=== PATIENT | female | born 1960 | race Caucasian/White ===

== ENCOUNTER 2022-08-23 09:16 | Outpatient (CLI) | payer MEDICARE, MEDICAID, SELFPAY ==
--- NOTE | ~2022-08-23 | PE_ITS ---
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 TECHNIQUE: Blood glucose level was 90 mg/dL. 9.955 mCi of 18-fluorodeoxyglucose (18-FDG) was administ ered i.v. Low dose computed tomography (CT) images were acquired from the base of the brain to the pr oximal thighs for attenuation correction and anatomic localization. Automated exposure control was em ployed. Dose-length product (DLP) was 867 mGy-cm. Positron emission tomography (PET) images were acqu ired in the same distribution. COMPARISON: None FINDINGS: Head/neck: There is increased activity in normal-sized lymph nodes in the neck bilaterally, likely re active. Chest: There are airspace opacities with volume loss in right middle lobe with maximum SUV of 3.2. Th ere is an 8 mm nodule in right lower lobe abutting the pleura without increased activity. No pleural effusion. Cardiomegaly is noted. No pericardial effusion. There are coronary artery calcifications. T here is mild right hilar and subcarinal lymphadenopathy. For example, a 2.2 x 1.6 cm subcarinal node demonstrates maximum SUV of 4.1. Abdomen/pelvis/proximal thighs: The liver, gallbladder, spleen, pancreas, adrenal glands, and right k idney are normal. There are 2 stones in left kidney with the larger measuring 13 mm. There is diverti culosis of the colon without evidence of diverticulitis. There are no dilated loops of bowel. The sunil endix is not visualized. There are no pathologically enlarged lymph nodes. There is no free intraperi toneal fluid. There is no osseous malignancy. IMPRESSION: 1. Airspace opacities with volume loss in right middle lobe with maximum SUV of 3.2, likely atelectas is/scarring versus pneumonia. Neoplasm cannot be excluded. 2. Mild right hilar and subcarinal lymphadenopathy with increased activity, which may be reactive or metastatic disease. 3. 8 mm nodule in right lung lower lobe without increased activity, probably benign. Noncontrast low- dose chest CT is recommended in 6 months. Reviewed, dictated and finalized at location A. IMPRESSION: 1. Airspace opacities with volume loss in right middle lobe with maximum SUV of 3.2, likely atelectasis/scarring versus pneumonia. Neoplasm cannot be excluded . 2. Mild right hilar and subcarinal lymphadenopathy with increased activity, whi ch may be reactive or metastatic disease. 3. 8 mm nodule in right lung lower lobe without increased activity, probably be nign. Noncontrast low-dose chest CT is recommended in 6 months.
[2022-08-23 09:43] LABS: Glucose Point of Care 90 mg/dl (65-105)
== END 2022-08-23 09:17 | disposition home or self-care (01) ==
LOC: ANHIMG 09:19
PROVIDERS: PCP Internal Medicine; Visit Provider Internal Medicine Pulmonary Disease
DX: D49.1 Neoplasm of unspecified behavior of respiratory system (principal); R91.8 Other nonspecific abnormal finding of lung field; R59.0 Localized enlarged lymph nodes
CPT/HCPCS: 78815; A9552

== ENCOUNTER 2024-07-03 15:01 | Outpatient (CLI) | payer MEDICARE, MEDICAID, SELFPAY ==
--- NOTE | ~2024-07-03 | XR_ITS ---
EXAMINATION: XR shoulder RT min 2V DATE: 07/03/2024 15:30 INDICATION: Right shoulder pain. TECHNIQUE: 5 views of right shoulder were obtained. COMPARISON: None. FINDINGS: Alignment is normal. No fracture. There is moderate osteoarthritis of glenohumeral joint an d mild osteoarthritis of acromioclavicular joint. IMPRESSION: 1. Polyarticular osteoarthritis. Reviewed, dictated and finalized at location B. [employer]
--- NOTE | ~2024-07-03 | XR_ITS ---
CHEST RADIOGRAPH, PA AND LATERAL CLINICAL HISTORY: CHEST PAIN/pain in rt shoulder . COMPARISON: None available TECHNIQUE: PA and lateral views of the chest. FINDINGS The left mid lung is partially obscured due to AICD generator. Wires project over the right atrium and right ventricle. The remainder of the cardiomediastinal silhouette is otherwise unremarkable. The lungs are clear IMPRESSION: No focal infiltrate or effusion. Reviewed, dictated and finalized at location A. [facility]
--- OUTSIDE RECORDS SUMMARY | 2024-07-05 02:48 | XMS_ITS | Data Portability ---
Author Organization [place] - [facility] [place], Main Office Address [address] [place] [address] Care Team Providers Care Fabric Inspector Name Role Phone LITZY RICHARDSON Primary Care Provider LITZY RICHARDSON Referring Provider [phone] Assessment Encounter Date Assessment Date Assessment LastModified by Organization Details LastModified Time 09/05/2022 09/05/2022 Assessment: Nicotine smoke: 1 ppd 1979-present = 43 pack years Mild ACO Right hilar/subcarinal lymphadenopathy RLL nodule Plan: The following were reviewed and explained to the patient: Chest CT 05/15/19 8.7 mm RLL pleural-based nodule Chest CT 09/17/20 8 mm RLL pleural based nodule Chest CT 07/18/22 8 mm RLL pleural based nodule + new RML wedge-shaped density PET/CT 08/23/22 right hilar/subcarinal lymphadenopathy, 8 mm RLL nodule, RML atelectasis/scar Lab data 08/02/22 PFT 08/16/22 FEV1 2.08 L (80%), (+) BD response Nicotine cessation counseling provided. [place] for quitting nicotine include getting ready, getting support and encouragement, learning new skills and behaviors and being prepared to handle slips. Tips for dealing with cravings provided. Prevention of subsequent illnesses from nicotine addiction discussed. Comorbidities include but are not limited to hypertension, cerebrovascular disease, coronary heart disease, congestive heart failure, hyperlipidemia, COPD/asthma, peptic ulcer disease, esophagitis/gastri tis, and osteoporosis. Therapy options offered include: Quitting by total abstinence Receiving nicotine replacement therapy Undergoing hypnosis Filling a bupropion or varenicline prescription Enrolling in Quit For Life program Registering at [email or web address] Making a call to 7-500-RNLZ-NOW ( ). A strong, clear, personalized message was given to the patient to quit smoking. The patient was urged to set a quit date. We discussed patient's barriers to quitting and I will be of assistance when patient is ready to quit. I encouraged patient to inform friends and family of plans to quit with a request for support. I encouraged the patient to remove all cigarettes from the environment. We reviewed any previous quit attempts and lessons learned from them. I encouraged total abstinence from smoking and advised the patient that drinking alcohol and/or associating with other smokers are associated with failure or relapse. Patient can enroll in [facility]'s smoking cessation class through Jennie Jain RN at . Enrollment is free and classes are held every monday of the month from 1:30 pm to 2:30 pm at the conference room next to the cafeteria on the ground floor. She tried total abstinence by chewing mints and gums, to no avail. She has nicotine patches step 1, 2 and 3 but has not started using them. Patient is referred to Dr. Mason Lindsay , at [facility] for advanced diagnostic and therapeutic bronchoscopy, scheduled for 09/12/22. Discontinue all NSAIDS (diclofenac, ibuprofen, naproxen) and ASA products until after the bronchoscopy. Advised to continue not to smoke. Continue albuterol HFA as needed. Continue budesonide/formote rol 2 puffs BID, not 1 puff BID and not as needed. Gargle after use. The patient does not know how to accurately administer the inhalers. Today, the patient was shown how to take these medications. The proper technique for delivering these medications was instructed. The patient expressed a clear understanding and demonstrated back how to use these medications. Without the proper technique, the patient will not reap the benefits of these medications as the contents will not reach the lower airways as intended to be. Adherence to therapy is advocated. Nonadherence may lead to treatment failure, further progression of the condition, and other complications. Hospitals admissions are often the result of individuals not taking prescription medications accurately. Alternatively, greater adherence to medication regimens have shown to lower rates of hospitalization and decrease total medical costs in patients with chronic medical conditions. Advocated influenza vaccination annually and pneumonia vaccination NAVARRO. Advocated weight loss through diet and exercise. Patient's ideal body weight according to height and gender is up to Encouraged patient to adjust caloric intake to maintain/achieve ideal body weight, emphasizing on fruits, vegetables, whole grains, and fat-free or low-fat products. These include lean meats, poultry, fish, beans, eggs, and nuts and foods that are low in saturated fats, trans-fats, cholesterol, salt (sodium), and glycemic index. Stressed the importance of regular exercise up to the patient's capacity limits. In this case, we recommend 20 min daily walking, 2 days a week of resistance training. Patient to monitor BP daily and bring records to PCP for further management. Follow-up: 1 month after [facility] consult with Dr. Angélica sullivan Not available 09/05/2022 15:10:19 01/22/2024 01/22/2024 63-year-old femliane linder presents for evaluation of her right knee. She has a history of a right TKA done with another surgeon who is no longer in practice in September of 2021. She had psoriasis and what sounds like a superficial wound infection but did not require additional surgery. Since then, she was doing well until about 6 months ago when she developed pain in the anterior knee. She points it over the patellar tendon. It is worse with walking and activities. She currently rates her pain as 7/10. She has not had any treatments for this yet. Review of systems per patient questionnaire Physical exam: She has a healed incision, clean dry intact without bleeding drainage or other signs of infection. She has an area of numbness over the lateral aspect of the wound. Range of motion 0-130. Tenderness over the patellar tendon. My lead antalgic gait. No extensor lag, good knee extension flexion strength. X-rays reviewed, demonstrating TKA in place, metallic patellar button,no signs of loosening She appears to have some patellar tendinitis after a total knee arthroplasty. we will treat her with a course of anti-inflammatorie s and physical therapy. We gave her orders her PT, as well as meloxicam and she should use some topical Voltaren. We will see her back after the course of treatment if she persists in her symptoms, then we would do lab work to rule out an infection, then refer her to a total joint specialist. We discussed that I do not do revision joint procedures and that she should try to get in touch with her surgeons group to see if there is somebody else she can see from that practice. [email or web address] Not available 01/22/2024 13:25:26 Plan of Treatment Reminders Order Date Submit Date Provider Last Modified By Organization Details Last Modified Time Details Appointments None recorded. Lab None recorded. Referral physical therapist referral - andrew and Munira September [id number] [email or web address] [facility] Physical, Occupational [facility], [address] [place], [address], 00:41:14 Procedures None recorded. Surgeries None recorded. Imaging None recorded. Medication Orders albuterol sulfate HFA 90 mcg/actuat ion aerosol inhaler 2022 023 [id number], [address], [place], [id number], 4 10:59:58 budesonide -formotero l HFA 160 mcg-4.5 mcg/actuat ion aerosol inhaler 2022 023 LISA [facility][id number], [address], [place], [id number], 3 15:08:47 Mobic 15 mg tablet 2023 024 [email or web address] [facility][id number], [address], [place], [id number], 4 00:41:14 Patient TargetsNo targets recorded. Patient InstructionsNo instructions recorded. Reason for Referral Physical Therapist Referral for History of right total knee replacement andrew and Munira September 2021 Referring Physician: Mason Baeza, Orthopedic Surgery, Encounter Date: 01/22/2024 Results Created Date Observation Date Name Description Value Unit Range Abnormal Flag Note LastModifiedBy Organization Detail LastModifiedTime 10/01/19 22 XR, foot, 3 or more view No observ ation record ed. [id number] [facility] [address], [place], [address], 08/10/2022 20:10:53 08/05/19 23 09/17/2020 CT, chest , w/ contr ast No observ ation record ed. [id number] Not Available 08/10/2022 20:10:53 08/05/19 23 05/15/2019 LDCT, chest , for lung cance r scree ton No observ ation record ed. [id number] Not Available 08/10/2022 20:10:53 08/19/19 23 07/18/2022 LDCT, chest , for lung cance r scree ton No observ ation record ed. BARCODE Not Available 2022 13:24:29 08/19/19 23 08/16/2022 PFT, compl ete No observ ation record ed. [facility]CODE Not Available 2022 13:26:34 08/24/19 23 08/23/2022 PET-C T, skull base to mid-t high scan No observ ation record ed. [facility] [address], [place], [address], 08/23/2022 18:28:15 02/18/20 23 02/14/2023 home sleep study No observ ation record ed. BARCODE Not Available 2022 14:00:16 03/01/20 23 02/14/2023 home sleep study No observ ation record ed. [email or web address] [facility] [address], [place], [address], 03/01/2023 16:40:27 01/02/20 24 10/10/2023 XR, knee, 3 view No observ ation record ed. [email or web address] Not Available 12/11 17:06:51 Result Notes None recorded. Problems Name Problem SNOMED Code Status Onset Date Resolution Date Notes Provider Name and Address Organization Details Recorded Time Localized, primary osteoarthr itis of the hand 019924161 Active Not Available [employer] 20:08:09 Low back pain 180124284 Active 2018 [facility] Available [facility] 20:08:09 Bunion 835347985 Active Not Available [facility] 20:08:09 Mild chronic obstructiv e pulmonary disease 546567067 Active 2022 Leonel Tolliver MD [address], [place], [address] , [email or web address] 3 14:57:37 Mediastina l lymphadeno nahomi 09629386 Active 2022 Leonel Tolliver MD [address], [place], [address] , [email or web address] 3 14:59:52 Hilar lymphadeno nahomi 37287452 Active 2022 Leonel Tolliver MD [address], [place], [address] , [email or web address] 3 15:00:02 Tendinitis of right patellar tendon 7899250381901 09 Active 2023 Mason Baeza MD [address], [place], [address] , [employer] 4 13:25:36 Notes:Medical History: Psori asis Depression L>R hearing loss Right tinnitus Rhinitis IgE 48 IU/mL AAT PiMM 157 mg% Nicotine use Mild ACO Obesity with mod OSAHS, AHI = 25, 02/14/23 Dilated cardiomyopathy Hypertension Hyperlipidemia CIELO Hepatitis C Vit D deficiency RLS OA Low back pain Left bunion Procedure History: Colonoscopy 2018 Right total knee replacement 2021 Occupational History: [employer] Problem Notes None recorded. Procedures Surgical History Date Name Laterality Status Provider Name and Address Organization Details Recorded Time 09/15/19 total knee replacement completed Not Available [facility] 08/10/2022 20:07:02 Defibrillator completed GILES Brenner [email or web address] 01/22/2024 11:00:50 Imaging Results Imaging Date Name Status LastModified by Organiz ation Details LastModified Time 09/30/2021 XR, foot, 3 or more view completed [id number] [facility] [address], [place], [address], 08/10/2022 20:10:53 09/17/2020 CT, chest, w/ contrast completed [id number] Information not available 08/10/2022 20:10:53 05/15/2019 LDCT, chest, for lung cancer screening completed [id number] Information not available 08/10/2022 20:10:53 07/18/2022 LDCT, chest, for lung cancer screening completed [facility] Information not available 08/18/2022 13:24:29 08/16/2022 PFT, complete completed [facility] Information not available 08/18/2022 13:26:34 08/23/2022 PET-CT, skull base to mid-thigh scan completed [facility] [address], [place], [address], 08/23/2022 18:28:15 02/14/2023 home sleep study completed [facility] Information not available 02/17/2023 14:00:16 02/14/2023 home sleep study completed [address] [facility] [address], [place], [address], 03/01/2023 16:40:27 10/10/2023 XR, knee, 3 view completed [email or web address] Information not available 01/02/2024 17:06:51 Procedure Notes None recorded. Medical Equipment None Reported. Allergies Allergen ID Allergen Name Allergen Category Reaction Reaction Severity Criticality Documentation Date Start Date Code Code System Note Provider Name and Address Organization Details Recorded Time 18629 clindamyc in Not available Not available Not available Not available 08/10/2022 2582 RxNorm Not Available [employer] 20:10:47 No known drug allergies Medications Name Sig Start Date Stop Date Status Note LastModified by Organization Details LastModified Time cyclobenzapri ne 10 mg tablet active Not Available Not Available Not Available promethazine- DM 6.25 mg-15 mg/5 mL oral syrup 08/02 completed Not Available Not Available Not Available carvedilol 6.25 mg tablet active Not Available Not Available Not Available gabapentin 600 mg tablet 01/21 completed Not Available Not Available Not Available doxycycline hyclate 100 mg capsule active Not Available Not Available N ot Available paroxetine 10 mg tablet 08/02 completed Not Available Not Available Not Available ropinirole 1 mg tablet 03/04 completed Not Available Not Available Not Available Tab-A-Shahnaz tablet 08/02 completed Not Available Not Available Not Available ibuprofen 800 mg tablet 08/02 completed Not Available Not Available Not Available hydrocodone 5 mg-acetaminop hen 325 mg tablet 08/02 completed Not Available Not Available Not Available promethazine 6.25 mg/5 mL oral syrup 08/02 completed Not Available Not Available Not Available meloxicam 15 mg tablet TAKE 1 TABLET BY MOUTH EVERY DAY 2023 active Not Available Not Available Not Avai lable prednisone 20 mg tablet 08/02 completed Not Available Not Available Not Available ropinirole 3 mg tablet active Not Available Not Available No t Available ciprofloxacin 500 mg tablet 08/02 completed Not Available Not Available Not Available peg-electroly te solution 420 gram oral solution 08/02 completed Not Available Not Available Not Available tramadol 50 mg tablet active Not Available Not Available No t Available nortriptyline 25 mg capsule 03/04 completed Not Available Not Available Not Available ropinirole 0.25 mg tablet 08/02 completed Not Available Not Available Not Available baclofen 10 mg tablet 08/02 completed Not Available Not Available Not Available amlodipine 10 mg tablet 08/02 completed Not Available Not Available Not Available ropinirole 2 mg tablet 08/02 completed Not Available Not Available Not Available cephalexin 500 mg capsule 01/21 completed Not Available Not Available Not Available ranitidine 150 mg tablet 03/04 completed Not Available Not Available Not Available promethazine 25 mg tablet 03/04 completed Not Available Not Available Not Available gabapentin 300 mg capsule 08/02 completed Not Available Not Available Not Available omeprazole 20 mg capsule,delay ed release active Not Available Not Available N ot Available diclofenac sodium 75 mg tablet,delaye d release 08/02 completed Not Available Not Available Not Available furosemide 20 mg tablet 08/02 completed Not Available Not Available Not Available fluocinonide 0.05 % topical solution 03/04 completed Not Available Not Available Not Available albuterol sulfate HFA 90 mcg/actuation aerosol inhaler INHALE 1 PUFF BY MOUTH EVERY 4 HOURS NEEDED 01/21 completed Not Available Not Available Not Available Vitamin D2 1,250 mcg (50,000 unit) capsule 08/02 completed Not Available Not Available Not Available betamethasone dipropionate 0.05 % topical ointment 03/04 completed Not Available Not Available Not Available naproxen 500 mg tablet 08/02 completed Not Available Not Available Not Available amoxicillin 875 mg-potassium clavulanate 125 mg tablet 02/16 completed Not Available Not Available Not Available Symbicort 160 mcg-4.5 mcg/actuation HFA aerosol inhaler INHALE 2 PUFFS BY MOUTH TWICE DAILY active Not Available Not Available No t Available Calcium 600 + D(3) 600 mg-10 mcg (400 unit) tablet 08/02 completed Not Available Not Available Not Available Entresto 24 mg-26 mg tablet active Not Available Not Available Not Available Zepatier 50 mg-100 mg tablet 02/21 completed Not Available Not Available Not Available Vitals Date Recorded Body mass index (BMI) Heart rate Body height Oxygen saturation Oxygen saturation in Arterial blood by Pulse oximetry Heart rate Respiratory rate Body temperature Body weight Systolic blood pressure Diastolic blood pressure Provider Name and Address Organization Details Last Updated DateTime 3 31.2 kg/m2 84 /min 171.45 cm 95 % 95 % 84 /min 15 /min 98.5 [degF] 36254.6 6 g 140 mm[Hg] 70 mm[Hg] Not Available [facility] 3 20:07:23 Date Recorded Body height Body mass index (BMI) Body weight Body temperature Heart rate Oxygen saturation Oxygen saturation in Arterial blood by Pulse oximetry Systolic blood pressure Diastolic blood pressure Provider Name and Address Organization Details Last Updated DateTime 3 171.45 cm 31.3 kg/m2 30729.2 5 g 98.3 [degF] 82 /min 96 % 96 % 130 mm[Hg] 82 mm[Hg] ROSELIA Tracey - [facility] [employer] 14:37:02 Date Recorded Heart rate Respiratory rate Provider N farzana and Address Organization Details Last Updated DateTime 09/05/2022 82 /min 15 /min Leonel Tolliver MD [address], [facility] [address], [place], [address], [facility] [employer] [facility] 09/05/2022 14:48:25 Date Recorded Body height Body mass index (BMI) Body weight Provider Name and Address Organization Details Last Updated DateTime 01/22/2024 170.18 cm 30.7 kg/m2 66499.1 g Kimmy Nikolai [facility] [employer] [facility] 01/22/2024 10:59:03 Social History Question Answer Notes LastModified by Organizat ion Details LastModified Time Tobacco Smoking Status Current Every Day Smoker Not Available [facility] 08/10/2022 20:06:48 What Is Your Level Of Alcohol Consumption? Moderate [id number] Information not available 08/10/2022 What Is Your Level Of Caffeine Consumption? Occasional MIGRATION.48999 [id number] Information not available 08/10/2022 In The 14 Days Before Symptom Onset, Have You Had Close Contact With A Laboratory-confi rmed COVID-19 While That Case Was Ill? No MIGRATION.67211 [id number] Information not available 08/10/2022 In The 14 Days Before Symptom Onset, Have You Had Close Contact With A Person Who Is Under Investigation For COVID-19 While That Person Was Ill? No MIGRATION.76856 [id number] Information not available 08/10/2022 What Type Of Diet Are You Following? REGULAR MIGRATION.63239 44188 Information not available 08/10/2022 Which Illicit Or Recreational Drugs Have You Used? Marijuana MIGRATION.15431 69551 Information not available 08/10/2022 Do You Have An Electrostatic Air Filter? No MIGRATION.00453 19044 Information not available 08/10/2022 Do You Have A Humidifier? No MIGRATION.60247 20321 Information not available 08/10/2022 Where Do You Live? [place] MIGRATION.88013 79288 Information not available 08/10/2022 Do You Have Moisture Problems In Your Home? No MIGRATION.37403 40817 Information not available 08/10/2022 What Was The Date Of Your Most Recent Tobacco Screening? 01/22/2024 [email or web address] Information not available 01/22/2024 Do You Have Any Pets? Yes MIGRATION.21872 03949 Information not available 08/10/2022 Do You Use Your Seat Belt Or Car Seat Routinely? Yes [email or web address] Information not available 09/05/2022 Do You Have Smoke And Carbon Monoxide Detectors In Your Home? Yes MIGRATION.68629 18056 Information not available 08/10/2022 Are You Passively Exposed To Smoke? No MIGRATION.85450 24063 Information not available 08/10/2022 How Much Tobacco Do You Smoke? 1 PPD MIGRATION.67384 06557 Information not available 08/10/2022 Do You Use Any Illicit Or Recreational Drugs? Yes MIGRATION.38010 52726 Information not available 08/10/2022 Do You Use Sunscreen Routinely? No MIGRATION.63481 11375 Information not available 08/10/2022 Have You Recently Traveled Abroad? No MIGRATION.63461 20970 Information not available 08/10/2022 Do You Have Any Dietary Restrictions? No MIGRATION.29172 30611 Information not available 08/10/2022 Sex: Unknown Functional Status Question Answer Note LastModified by [email or web address] ion Details LastModified Time What is your exercise level? Occasional [id number] Information not available 08/10/2022 Mental Status None recorded. Family History Relationship Description Onset Age of this Age Resolved Age Notes LastModified by Organization Details LastModified Time Brother Asthma [email or web address] Not available 14:56:07 Brother Congestive heart failure [email or web address] Not available 2022 17:23:09 Father Cerebrovascu lar accident [email or web address] Not available 12/2022 17:23:17 Mother Malignant tumor of stomach [email or web address] Not available 2022 17:23:29 Medical History Condition Response HEART ARRHYTHMIA Y HEPATITIS / LIVER DISEASE Y Gynecological HistoryNo gynecological history recorded. Obstetrics History GPAL:G 0 P 0 0 0 0 Past Encounters Encounter ID Performer Location Encounter Start Date Encounter Closed Date Diagnosis/Indication Diagnosis SNOMED-CT Code Diagnosis ICD10 Code Diagnosis Note [id number] _ATHENA_M IGRATION_ DEFAULT_1 _1 , 09/24/2021 00:00:00 09/30/2021 10:08:17 [id number] [facility] [address] [place] [address] 08/02/2022 00:00:00 08/02/2022 16:18:50 [id number] Leonel Tolliver MD [facility] [place] [address] [facility] [address] [place] [address] 09/05/2022 14:21:20 09/06/2022 08:49:31 Mild chronic obstructive pulmonary disease 906521120 J44.9 Hilar lymphadenopathy 87 093121 R59.0 [id number] Mason Baeza MD [facility] [place] [address] [place] [address] 01/22/2024 10:31:13 01/22/2024 11:41:00 History of right total knee replacement 4578673187 780804 Z96.651 Tendinitis of right patellar tendon 0291660337 44967 M76.51 Health Concerns Section Related Observation LastModified by Organization Detai ls LastModified Time None Recorded Concern Status LastModified by Organization Details LastModified Time None Recorded Advance Directives Directive None Recorded Payers Encounter Date Sequence Insurance Name Policy Number Policy Booker Covered Member ID Booker Member ID Guarantor Name 09/05/2022 1 [facility] [place] - ACCESS SNP DUAL ELIGIBLE (MEDICARE - MEDICAID REPLACEMENT HMO) Mayra Zavala [id number] Mayra Zavala 01/22/2024 2 [place] WHEN MEDICARE OR MEDICARE REPLACEMENT PRIMARY) Mayra Zavala [id number] Mayra Zavala 01/22/2024 1 [facility] (MEDICARE REPLACEMENT/AD VANTAGE - PPO) [id number] Mayra Zavala [id number] Mayra Zavala Notes Date Note Type Note Provider Name and Address Organization Details Recorded Time 09/05/2022 text/html Primary care/Ref erring provider: Prieto Kumar is here to go over her lab data, PFT and PET/CT scan as part of her shortness of breath evaluation/management. Initial development of shortness of breath: 2018Duration of shortness of breath: 5 yearsCondition of shortness of breath: stableTiming of shortness of breath: late nightFrequency: up to 2 times a dayLimits activities: yesAggravating factors: walking, line dancingAlleviating factors: rest x 1 minuteModified Medical Research [place] (mMRC) Dyspnea Scale - Grade 1Grade 0 ? I only get breathless with strenuous exercise? .Grade 1 ? I get short of breath when hurrying on the level or walking up a slight hill? .Grade 2 ? I walk slower than people of the same age on the level because of breathlessness or have to stop for breath when walking at my own pace on the level? .Grade 3 ? I stop for breath after walking about 100 yards or after a few minutes on the level? .Grade 4 ? I am too breathless to leave the house? or ? I am breathless when dressing? .Treatment history:Albuterol HFA as needed since 2018, she uses this once a monthBudesonide/Formot juanjo 2 puffs BID but using only once a month since 2018Other symptoms:Drooling: noDysarthria: noNeck pain: noOdynophagia: noDysphagia: noWeak mastication: noFacial weakness: noNasal speech: noProtruding tongue: noProductive cough: noWheezing: yesChest tightness: yesOrthopnea: 2-pillowFrequent throat clearing or swallowing: noPalpitations: noHeartburn: noEdema: yesEnvironmental exposures:Nicotine smoke: 1 ppd 1980-present = 43 pack yearsPaint: noDye: noDust mites: yesMold: noDamp basement: noWood burning stove: noAnimal dander: dogCockroaches: noPollen: yesArsenic: noAsbestos: noBeryllium: noCadmium: noChromium: noCoal smoke: noDiesel fumes: noNickel: noSilica: noSoot: noEPWORTH SLEEPINESS SCALE (ESS)CHANCE OF DOZING SCORE0 = would never doze1 = slight chance of dozing2 = moderate chance of dozing3 = high chance of dozingSITUATION AND CHANCE OF DOZINGSitting and reading - 1Watching television - 0Sitting inactive in a public place (e.g. a theater or meeting) - 1As a passenger in a car for an hour without a break - 1Lying down to rest in the afternoon when circumstances permit - 0Sitting and talking to someone - 0Sitting quietly after lunch without alcohol - 0In a car, while stopped for a few minutes in the traffic - 0TOTAL SCORE 3Subjectively, patient has a slight chance of dozing. Leonel Tolliver MD [address] [place] [id number], [facility] [address], [place], [address], [place] [facility] 09/05/2022 15:10:50 OBGyn Episode No OBEpisode recorded.
== END 2024-07-03 15:02 | disposition home or self-care (01) ==
PROVIDERS: PCP Emergency Medicine; Visit Provider Emergency Medicine
DX: R07.1 Chest pain on breathing (principal); M25.511 Pain in right shoulder
CPT/HCPCS: 71046; 73030

== ENCOUNTER 2024-08-27 14:16 | Outpatient (CLI) | payer MEDICARE, MEDICAID, SELFPAY ==
--- NOTE | ~2024-08-27 | XR_ITS ---
XR shoulder RT min 2V Ordering provider: Lakisha Enamorado, History: . Pain in rt arm, LIMITED ROM, PAIN 4 MONTHS, NKI . Comparison: None. FINDINGS: BONES: No acute fracture or dislocation. JOINT SPACES: The acromioclavicular joint shows osteoarthritic changes. The glenohumeral joint with o steophytes with osteoarthritic changes. SOFT TISSUES: Normal. IMPRESSION: No acute osseous abnormality right shoulder. Osteoarthritic changes of the glenohumeral joint and acromioclavicular joint. Reviewed, dictated and finalized at location A.
--- NOTE | ~2024-08-27 | XR_ITS ---
XR humerus RT Ordering provider: Lakisha Enamorado, History: . Pain in rt arm . Comparison: None. FINDINGS: BONES: No acute fracture or dislocation. Degenerative changes in the area of the greater tuberosity. JOINT SPACES: Osteoarthritic changes in the acromioclavicular joint. Glenohumeral joint. SOFT TISSUES: Normal. IMPRESSION: No acute osseous abnormality right humerus. Reviewed, dictated and finalized at location A.
--- OUTSIDE RECORDS SUMMARY | 2024-08-27 16:07 | XMS_ITS | Data Portability ---
Author Organization [facility] Address [address] [place] [address] Care Team Providers Care Nib Inspector Name Role Phone MOOK SARAH Lead Solutions Architect LAKISHA ENAMORADO Primary Care Provider Unavailabl e Assessment No assessment recorded. Plan of Treatment Reminders Order Date Submit Date Provider Last Modified By Organization Details Last Modified Time Details Appointments ANY 15 2024 01:30P M Jarrell Odom MD Not available Not available Not available ANY 30 2024 02:30P M Lakisha Enamorado MD Not available Not available Not available Lab CMP, serum or plasma 2024 025 [facility], [address] [place] [address], [facility] [address], [place], [address], 08/12/2024 17:41:25 lipid panel, serum 2024 025 [facility], [address] [place] [address], [address], [place], [address], 08/12/2024 17:41:25 CBC 2024 025 [facility], [address] [place] [address], [address], [place], [address], 08/12/2024 17:41:26 albumin/ creatini ne, mass ratio, urine 2024 025 [facility], [address] [place] [address], [address], [place], [address], 08/12/2024 17:41:25 rf (rheumat oid factor), serum 2023 024 [facility], [facility] [address], [address], [place], [address], 05/01/2024 16:37:21 ROSA ISELA (antinuc lear antibodi es) screen, ifa, serum 2023 024 [facility], [address] [place] [address] Ozzy, [address], [place], [address], 05/01/2024 16:37:21 ESR (erythro cyte sediment ation rate), blood 2023 024 LISA KUNAL, [address] [place], [place] [address]reggie Preciado, [address], [place], [address], 05/01/2024 16:37:20 lipid panel, serum 2023 024 [facility], [address] [place], [place] [address]reggie Preciado, [address], [place], [address], 05/01/2024 16:37:22 CMP, serum or plasma 2023 024 [facility], [address] [place], [place] [address]reggie Preciado, [address], [place], [address], 05/01/2024 16:37:21 albumin/ creatini ne, mass ratio, urine 2023 024 [facility], [address] [place], [place] [address]reggie Preciaod, [address], [place], [address], 05/01/2024 16:37:22 cytology report, thin prep, smear or scraping , cervical or vaginal 2023 024 [facility], [address] [place], [place] [address]reggie Preciado, [address], [place], [address], 03/07/2024 20:08:36 RPR (rapid plasma reagin), serum 2023 024 [facility], [address], [address], [place], [address], 03/05/2024 03:08:36 herpes simplex, culture, unspecif ied specimen 2023 024 [facility], [address] [place] [address], [address], [place], [address], 03/08/2024 20:09:12 BMP, serum or plasma 2023 024 [facility], [address] [place] [address], [address], [place], [address], 03/05/2024 06:17:55 Referral physical therapis t referral 2023 024 [facility], [address], [place], [address], 04/03/2024 09:29:04 orthoped ic surgeon referral 2023 024 [facility], [address], [place], [address], 02/09/2024 15:57:51 neurolog ist referral - paresthe raisa right upper and lower extremit y, EMG carpal tunnel which does not explain all of her symptoms , also has restless legs 2023 024 LISA Soares MD, [address], [place], [address], 07/03/2024 15:43:52 Procedures None recorded . Surgeries None recorded . Imaging XR, humerus - Rule out fracture , tender below humeral head 2024 025 [facility], [address], [place], [address], 08/27/2024 15:44:34 XR, shoulder - increasi ng pain 2024 025 [facility], [address], [place], [address], 08/27/2024 15:44:24 XR, chest 2023 024 [facility] ([facility]), [address], [place], [address], 07/09/2024 10:18:04 XR, shoulder - RIGHT SHOULDER 2023 024 [facility] ([facility]), [address], [place], [address], 07/09/2024 10:19:08 MAMMO, screenin g, digital, bilatera l [address] [facility]), [address] [place], [address], 02/08/2024 16:32:53 Medication Orders tramadol 50 mg tablet 2024 025 [id number], [address], [place], [id number], 08/12/2024 17:41:33 omeprazo le 20 mg capsule, delayed release 2023 024 [id number], [address], [place], [id number], 05/02/2024 09:33:22 Ventolin HFA 90 mcg/actu ation aerosol inhaler 2023 024 [facility][id number], [address], [place], [id number], 05/02/2024 09:33:21 Symbicor t 160 mcg-4.5 mcg/actu ation HFA aerosol inhaler 2023 [facility] #[id number], [address], [place], [id number], 05/02/2024 09:33:20 ropiniro le 3 mg tablet 2023 [facility] #[id number], [address], [place], [id number], 05/02/2024 09:33:18 gabapent in 600 mg tablet 2023 [facility] [employer] [facility][id number], [address], [place], [id number], 05/02/2024 09:33:22 Patient TargetsNo targets recorded. Patient Instructions Encounter Date Encounter Id Patient Instructions Last Modified By Organization Details Last Modified Time 01/01/2024 [id number] A healthy lifestyle: care instructions rick Not available 01/01/2024 16:47:19 03/04/2024 [id number] Attending Physician Attestation I personally saw and examined the patient with the resident. I have reviewed the documentation and agree with the history, physical findings, work-up, and medical decision making as recorded. Sarah Delvalle MD mmetias Not available 03/04/2024 11:04:47 Reason for Referral Orthopedic Surgeon Referral for Yessi test positive Referring Physician: Lakisha Enamorado, Family Medicine, Encounter Date: 01/01/2024 Neurologist Referral for Par esthesia paresthesia right upper and lower extremity, EMG carpal tunnel which does not explain all of her symptoms, also has restless legs Referring Physician: Lakisha Enamorado, Family Medicine, Encounter Date: 01/01/2024 Physical Therapist Referral for Iliotibial band friction syndrome of right knee Referring Physician: Jarrell Odom, Orthopedic Surgery, Encounter Date: 04/01/2024 Results Created Date Observation Date Name Description Value Unit Range Abnormal Flag Note LastModifiedBy Organization Detail LastModifiedTime 03/04/2003/05/2024 RPR, RFX QN RPR/C ONFIR M TP RPR NON REACTI VE nonrea ctive Not Available [facility] ([facility]) [address] [facility], [address], 03/05/2024 03:08:35 03/04/2003/05/2024 BASIC METAB OLIC PANEL (8) glucose 100 mg/dL 70-99 above high normal Not Available [facility] ([facility]) [address] [facility], [address], 03/05/2024 06:17:55 03/04/2003/05/2024 BASIC METAB OLIC PANEL (8) BUN 22 mg/dL 8-27 Not Available [facility] ([facility]) [address] [place], [address], 03/05/2024 06:17:55 03/04/2003/05/2024 BASIC METAB OLIC PANEL (8) creatinine 0.80 mg/dL 0.57-1 .00 Not Available [facility] ([facility]) [address] [facility], [address], 03/05/2024 06:17:55 03/04/2003/05/2024 BASIC METAB OLIC PANEL (8) eGFR 84 mL/mi n/1.7 3 >59 Not Available [facility] ([facility]) [address] [facility], [address], 03/05/2024 06:17:55 03/04/2003/05/2024 BASIC METAB OLIC PANEL (8) BUN/creatini ne ratio 28 12-28 Not Available [facility] ([facility]) [address] [place], [address], 03/05/2024 06:17:55 03/04/2003/05/2024 BASIC METAB OLIC PANEL (8) sodium 138 mmol/ L 134-14 4 Not Available [facility] ([facility]) [address] [place], [address], 03/05/2024 06:17:55 03/04/20 24 03/05/2024 BASIC METAB OLIC PANEL (8) potassium 5.5 mmol/ L 3.5-5. 2 above high normal Not Available [facility] ([facility]) [address] [place], [address], 03/05/2024 06:17:55 03/04/2003/05/2024 BASIC METAB OLIC PANEL (8) chloride 102 mmol/ L 96-106 Not Available [facility] ([facility]) [address] [place], [address], 03/05/2024 06:17:55 03/04/2003/05/2024 BASIC METAB OLIC PANEL (8) carbon dioxide, total 24 mmol/ L 20-29 Not Available [facility] ([facility]) [address] [place], [address], 03/05/2024 06:17:55 03/04/2003/05/2024 BASIC METAB OLIC PANEL (8) calcium 9.5 mg/dL 8.7-10 .3 Not Available [facility] ([facility]) [address] [place], [address], 03/05/2024 06:17:55 03/04/20 24 03/06/2024 IGP, APTIM A HPV, RFX 16/18 ,45 HPV aptima NEGATI VE negati ve This nucle ic acid ampli ficat ion test detec ts fourt een high- risk HPV types (16,1 8,31, 33,35 ,39,4 5,51, 52,56 ,58,5 9,66, 68) witho ut diffe renti ation . Not Available [facility] ([facility]) [address], [place], [address], 03/07/2024 20:08:36 03/04/20 24 03/07/2024 IGP, APTIM A HPV, RFX 16/18 ,45 diagnosis: VONDA MORELAND REBA FOR INTRA EPITH ELIAL LESIO N OR PING MAYA . PREDO IDA CE OF COCCO BACIL LI CONSI STENT WITH SHIFT IN VAGIN AL AZALIA IS PRESE NT. Not Available [facility] ([facility]) [address], [place], [address], 03/07/2024 20:08:36 03/04/20 24 03/07/2024 IGP, APTIM A HPV, RFX 16/18 ,45 specimen adequacy: VONDA Westbrook Satis facto raymond for evalu ation . No endoc ervic al compo nent is ident ified . Not Available [facility] ([facility]) [address], [place], [address], 03/07/2024 20:08:36 03/04/20 24 03/07/2024 IGP, APTIM A HPV, RFX 16/18 ,45 clinician provided ICD10: VONDA Westbrook N76.6 Z01.4 19 Not Available [facility] ([facility]) [address] [place], [address], 03/07/2024 20:08:36 03/04/20 24 03/07/2024 IGP, APTIM A HPV, RFX 16/18 ,45 performed by: VONDA Means and-Ladonna Fraser (ASCP ) Not Available [facility] ([facility]) [address] [place], [address], 03/07/2024 20:08:36 03/04/20 24 03/07/2024 IGP, APTIM A HPV, RFX 16/18 ,45 . . Not Available [facility] ([facility]) [address] [facility] [place], [address], 03/07/2024 20:08:36 03/04/20 24 03/07/2024 IGP, APTIM A HPV, RFX 16/18 ,45 note: COMMEN T The Pap smear is a scree ton test desig matt to aid in the detec tion of polo ligna nt and malig nant condi tions of the uteri ne cervi x. It is not a diagn ostic proce dure and shoul d not be used as the sole means of detec ting cervi paolo cance r. Both false -posi tive and false -nega tive repor ts do occur . Not Available [facility] ([facility]) [address] [place], [address], 03/07/2024 20:08:36 03/04/20 24 03/07/2024 IGP, APTIM A HPV, RFX 16/18 ,45 test methodology: COMMEN T This liqui d based ThinP rep(R ) pap test was scree matt with the use of an image guide crystal ball. Not Available [facility] ([facility]) [address] [place], [address], 03/07/2024 20:08:36 03/04/20 24 03/07/2024 IGP, APTIM A HPV, RFX 16/18 ,45 HPV genotype reflex COMMEN T Crite fransico not met, HPV Genot ype not perfo rmed. Not Available [facility] ([facility]) [address] [place], [address], 03/07/2024 20:08:36 03/04/20 24 03/08/2024 HSV CULTU RE AND TYPIN G hsv culture/type COMMEN T Negat reba No Herpe s simpl ex virus isola adolfo. Not Available [facility] ([facility]) [address] [place], [address], 03/08/2024 20:09:12 02/08/20 24 02/08/2024 MAMMO , scree ton, digit al, bilat eral No observ ation record ed. [facility] [address] [place], [address], 02/09/2024 16:14:09 04/01/20 24 04/01/2024 XR, knee, 3 view No observ ation record ed. [facility] [address] [facility], [place], [address], 04/01/2024 14:52:05 07/08/19 25 07/03/2024 XR, chest No observ ation record ed. [facility] ([facility]) [address] [place] [address] [place] [address], [address], 08/12/2024 14:16:16 07/08/19 25 07/03/2024 XR, shoul ariana No observ ation record ed. [facility] ([facility]) [facility], [place], [address], 08/12/2024 14:16:16 Result Notes None recorded. Problems Name Problem SNOMED Code Status Onset Date Resolution Date Notes Provider Name and Address Organization Details Recorded Time Restless legs 33971512 Active 2017 Not Available [facility] 4 05:55:45 Tinea capitis 8019287 Active 2017 Not Available [facility] 4 05:55:45 Vitamin D deficiency 63960275 Active 2017 Not Available [facility] 4 05:55:45 Screening for malignant neoplasm of breast Active 2017 Not Available [facility] 4 05:55:45 Family history of ischemic heart disease 092662751 Active 2018 Not Available [facility] 4 05:55:45 Pre-surgery evaluation Active 2018 Not Available [facility] 4 05:55:45 Cramp in lower limb 521529792 Active 2018 Not Available [facility] 4 05:55:45 Depressive disorder 29842009 Active 2018 Not Available [facility] 4 05:55:45 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 Whitt Not Available [facility] 4 05:55:45 Normal grief reaction 038678440 Active 2019 Not Available [facility] 4 05:55:45 Solitary nodule of lung 951390342 Active 2020 Not Available [facility] 4 05:55:45 Constipatio n 35954306 Active 2020 Not Available [facility] 4 05:55:45 Dysuria 20586617 Active 2021 Not Available [facility] 4 05:55:45 Menopausal syndrome 446106606 Active 2021 Not Available [facility] 4 05:55:45 Knee pain Active Not Available [facility] 4 05:55:45 Hip pain 38050090 Active Not Available [facility] 4 05:55:45 Neuropathy 627153679 Active Not Available [facility] 4 05:55:45 Tobacco user 718447067 Active Not Available [facility] 4 05:55:45 Psoriasis 1486318 Active Not Available [facility] 4 05:55:45 Spasm 83899874 Active Not Available [facility] 4 05:55:45 Insomnia 769442259 Active Not Available [facility] 4 05:55:45 Low back pain 759739749 Active Not Available [facility] 4 05:55:45 Stress 50424792 Active Not Available [facility] 4 05:55:45 Bilateral hearing loss 77489185 Active 2016 Not Available [facility] 4 05:55:45 Gastroesoph ageal reflux disease 118756740 Active 2016 Not Available [facility] 4 05:55:45 Chronic cough 18517135 Active 2016 Not Available [facility] 4 05:55:45 Liver enzymes level above reference range 849090854 Active 2016 Not Available [facility] 4 05:55:45 Hepatitis C antibody detected 354222196 Active 2016 Not Available [facility] 4 05:55:45 Notes:Some problems listed i n Documents: #[id number], #[id number] could not be added to this patient's chart. Please review these documents and add these problems to the patient's chart manually as needed. Problem Notes None recorded. Procedures Surgical History Date Name Laterality Status Provider Name and Address Organization Details Recorded Time 03/04/20 24 Date of Last Pap Smear completed Sima Keen MA [facility] 03/04/2024 10:16:33 02/08/20 24 Date of Last Mammogram completed Sima Keen MA [facility] 03/01/2024 11:00:40 09/15/19 22 total replacement of right knee joint completed Billie Sawyer MA [facility] 12/30/2021 14:25:18 Defibrillator completed Keyona Guerrero MA [facility] 05/01/2024 16:02:21 biopsy of lung completed Keyona Guerrero MA [facility] 05/01/2024 16:02:33 Imaging Results Imaging Date Name Status LastModified by Organiz ation Details LastModified Time 02/08/2024 MAMMO, screening, digital, bilateral completed [facility] [address] [place], [address], 02/09/2024 16:14:09 04/01/2024 XR, knee, 3 view completed [facility] [address] [place], [address], 04/01/2024 14:52:05 07/03/2024 XR, chest completed [facility] ([facility]) [address] [place] [address], [address], 08/12/2024 14:16:16 07/03/2024 XR, shoulder completed [facility]) [address] [place] [address], [address], 08/12/2024 14:16:16 Procedure Notes None recorded. Medical Equipment None Reported. Allergies No known drug allergies Medications Name Sig Start Date Stop Date Status Note LastModified by Organization Details LastModified Time multivita min tablet Take 1 tablet every day by oral route. 07/04 completed Not Available Not Available Not Available Santyl 250 unit/gram topical ointment 04/04 completed Not Available Not Available Not Available cyclobenz aprine 10 mg tablet TAKE 1 TABLET BY MOUTH AT BEDTIME NEEDED 03/08 completed Not Available Not Available Not Available Miralax 17 gram/dose oral powder Take 17 g twice a day by oral route as needed for 1 day. 04/04 completed Not Available Not Available Not Available promethaz ine-DM 6.25 mg-15 mg/5 mL oral syrup TAKE 5 ML (CC) BY MOUTH THREE TIMES DAILY 04/04 completed Not Available Not Available Not Available azelastin e 0.05 % eye drops 04/04 completed Not Available Not Available Not Available venlafaxi ne ER 37.5 mg capsule,e xtended release 24 hr Take 1 capsule every day by oral route in the evening for 7 days. 04/18 completed Not Available Not Available Not Available carvedilo l 6.25 mg tablet active Not Available Not Available Not Available venlafaxi ne ER 75 mg capsule,e xtended release 24 hr Take 1 capsule every day by oral route in the evening for 7 days. 04/18 completed Not Available Not Available Not Available gabapenti n 600 mg tablet one tab po qid prn active Not Available Not Available No t Available doxycycli ne hyclate 100 mg capsule 10/01 completed Not Available Not Available Not Available paroxetin e 10 mg tablet TAKE 1 TABLET BY MOUTH EVERY DAY AT BEDTIME 04/04 completed Not Available Not Available Not Available ropinirol e 1 mg tablet Take 1 tablet every day by oral route at bedtime for 30 days. 03/06 completed Not Available Not Available Not Available trazodone 50 mg tablet Take 1 tablet as needed by oral route at bedtime for 30 days. 07/19 completed Not Available Not Available Not Available Tab-A-Vit e tablet 10/17 completed Not Available Not Available Not Available azithromy svetlana 250 mg tablet 05/01 completed Not Available Not Available Not Available ibuprofen 800 mg tablet TAKE ONE TABLET BY MOUTH THREE TIMES DAILY WITH FOOD 08/26 completed Not Available Not Available Not Available tizanidin e 4 mg tablet TAKE 1 TABLET BY MOUTH THREE TIMES DAILY NEEDED 04/04 completed Not Available Not Available Not Available hydrocodo ne 5 mg-acetam inophen 325 mg tablet 04/04 completed Not Available Not Available Not Available promethaz ine 6.25 mg/5 mL oral syrup Take 10 mL every day by oral route as needed for 90 days. 01/02 completed Not Available Not Available Not Available meloxicam 15 mg tablet active Not Available Not Available Not Available phenazopy ridine 200 mg tablet Take 1 tablet 3 times a day by oral route for 2 days. 04/04 completed Not Available Not Available Not Available prednison e 20 mg tablet take 2 tablets bid for days 1 &2, 1 tablet BID for days 3-7, 1/2 tablet bid days 8&9, then 1/2 tablet on day 10 05/01 completed Not Available Not Available Not Available ropinirol e 3 mg tablet TAKE 1 TABLET BY MOUTH AT BEDTIME 2024 active Not Available Not Available Not Avai lable venlafaxi ne ER 150 mg capsule,e xtended release 24 hr Take 1 capsule every day by oral route in the evening for 30 days. 05/17 completed weird dreams Not Available Not Available Not Available diphenoxy late-atro pine 2.5 mg-0.025 mg tablet 05/15 completed Not Available Not Available Not Available metronida zole 500 mg tablet Take 1 tablet twice a day by oral route for 7 days. 04/04 completed Not Available Not Available Not Available acetamino phen 300 mg-codein e 30 mg tablet Take 1 tablet twice a day by oral route for 30 days. 04/04 completed Not Available Not Available Not Available ciproflox acin 500 mg tablet Take 1 tablet every 12 hours by oral route for 10 days. 04/04 completed Not Available Not Available Not Available sulfameth oxazole 800 mg-trimet hoprim 160 mg tablet 04/04 completed Not Available Not Available Not Available peg-elect rolyte solution 420 gram oral solution 09/28 completed Not Available Not Available Not Available tramadol 50 mg tablet one to two tabs po tid prn pain 2024 active Not Available Not Available Not Avai lable Depo-Medr ol 80 mg/mL suspensio n for injection 03/06 completed Not Available Not Available Not Available nortripty line 25 mg capsule Take 4 capsules as needed by oral route at bedtime for 30 days. 03/06 completed Not Available Not Available Not Available meloxicam 7.5 mg tablet 12/31 completed Not Available Not Available Not Available ofloxacin 0.3 % ear drops 09/28 completed Not Available Not Available Not Available citalopra m 20 mg tablet Take 1 tablet every day by oral route in the evening for 30 days. 05/15 completed Not Available Not Available Not Available Fleet Enema 19 gram-7 gram/118 mL Insert 118 mL twice a day by rectal route as needed for 1 day. 04/04 completed Not Available Not Available Not Available magnesium oxide 400 mg (241.3 mg magnesium ) tablet Take 1 tablet twice a day by oral route with meals for 7 days. 05/15 completed Not Available Not Available Not Available ropinirol e 0.25 mg tablet TAKE 3 TABLETS BY MOUTH EVERY NIGHT AT BEDTIME. CONTINUE 2MG TABLETS WELL 07/04 completed Not Available Not Available Not Available baclofen 10 mg tablet Take 1 tablet 3 times a day by oral route as needed for 30 days. 03/06 completed ineffect reba Not Available Not Available Not Available amlodipin e 10 mg tablet 04/04 completed Not Available Not Available Not Available ropinirol e 2 mg tablet TAKE 1 TABLET BY MOUTH EVERY NIGHT 07/04 completed Not Available Not Available Not Available cephalexi n 500 mg capsule 12/31 completed Not Available Not Available Not Available paroxetin e 20 mg tablet Take 1 tablet every day by oral route in the evening for 30 days. 04/04 completed Not Available Not Available Not Available nortripty line 10 mg capsule TAKE FOUR CAPSULES BY MOUTH AT BEDTIME NEEDED 05/15 completed Not Available Not Available Not Available triamcino lone acetonide 0.1 % topical ointment APPLY A THIN LAYER TO THE AFFECTED AREA(S) BY TOPICAL ROUTE 2 TIMES PER DAY no more than two weeks in a row 05/01 completed Not Available Not Available Not Available ranitidin e 150 mg tablet TAKE ONE TABLET BY MOUTH TWICE DAILY BEFORE MEALS 09/28 completed Not Available Not Available Not Available promethaz ine 25 mg tablet 09/28 completed Not Available Not Available Not Available nicotine 21 mg/24 hr daily transderm al patch Apply 1 patch every day by transder mal route for 30 days. 07/04 completed Not Available Not Available Not Available docusate sodium 100 mg capsule Take 1 capsule twice a day by oral route for 30 days. 04/04 completed Not Available Not Available Not Available gabapenti n 300 mg capsule TAKE 2 CAPSULES BY MOUTH THREE TIMES DAILY 07/04 completed Not Available Not Available Not Available omeprazol e 20 mg capsule,d elayed release TAKE 1 CAPSULE BY MOUTH TWICE DAILY BEFORE MEAL(S) 2023 active Not Available Not Available Not Avai lable diclofena c sodium 75 mg tablet,de layed release 04/18 completed Not Available Not Available Not Available furosemid e 20 mg tablet 04/04 completed Not Available Not Available Not Available gabapenti n 100 mg capsule 07/04 completed Not Available Not Available Not Available fluocinon esme 0.05 % topical solution APPLY TO THE AFFECTED AREA(S) BY TOPICAL ROUTE 2 TIMES PER DAY 04/18 completed Not Available Not Available Not Available levofloxa svetlana 750 mg tablet 05/15 completed Not Available Not Available Not Available Vitamin D2 1,250 mcg (50,000 unit) capsule TAKE 1 CAPSULE BY MOUTH ONCE A WEEK WITH MEALS 07/19 completed Not Available Not Available Not Available betametha sone dipropion ate 0.05 % topical ointment APPLY A THIN LAYER TO THE AFFECTED AREA(S) BY TOPICAL ROUTE ONCE DAILY 07/19 completed Not Available Not Available Not Available naproxen 500 mg tablet TAKE 1 TABLET BY MOUTH TWICE DAILY 04/04 completed Not Available Not Available Not Available amoxicill in 875 mg-potass ium clavulana te 125 mg tablet 10/03 completed Not Available Not Available Not Available Tylenol Extra Strength 500 mg tablet Take 1 tablet 3 times a day by oral route as directed for 30 days. 04/04 completed Not Available Not Available Not Available Ventolin HFA 90 mcg/actua tion aerosol inhaler two puffs qid prn 2023 active Not Available Not Available Not Avai lable Benadryl 25 mg capsule Take 1 capsule every day by oral route at bedtime for 10 days. 04/04 completed Not Available Not Available Not Available escitalop alyse 10 mg tablet TAKE 1 TABLET BY MOUTH AT DINNER active Not Available Not Available No t Available escitalop alyse 5 mg tablet Take 1 tablet every day by oral route at dinner for 30 days. 11/05 completed Not Available Not Available Not Available Symbicort 160 mcg-4.5 mcg/actua tion HFA aerosol inhaler two puffs bid 2023 active Not Available Not Available Not Avai lable cholecalc iferol (vitamin D3) 1,250 mcg (50,000 unit) capsule Take 1 capsule every week by oral route as directed for 90 days. 12/31 completed Not Available Not Available Not Available diclofena c 1 % topical gel APPLY 2 GRAM TO THE AFFECTED AREA(S) BY TOPICAL ROUTE 4 TIMES PER DAY 04/18 completed Not Available Not Available Not Available Calcium with Vitamin D 600 mg-10 mcg (400 unit) tablet Take 1 tablet twice a day by oral route. 07/04 completed Not Available Not Available Not Available Chantix Starting Month Box 0.5 mg (11)-1 mg (42) tablets in dose pack Take 1 startr pk by oral route for 30 days. 11/05 completed Not Available Not Available Not Available Pennsaid 20 mg/gram/a ctuation (2 %) topical soln in metered-d ose pump APPLY 2 PUMPS (40 MG) TO THE AFFECTED KNEE(S) BY TOPICAL ROUTE 2 TIMES PER DAY 04/04 completed Not Available Not Available Not Available Entresto 24 mg-26 mg tablet active Not Available Not Available No t Available Zepatier 50 mg-100 mg tablet 05/15 completed Not Available Not Available Not Available Vitals Date Recorded Body height Systolic blood pressure Diastolic blood pressure Provider Name and Address Organization Details Last Updated DateTime 01/01/2024 168.91 cm 134 mm[Hg] 70 mm[Hg] Keyona Guerrero [place] [facility] 01/02/2024 09:06:09 Date Recorded Body mass index (BMI) Body weight Oxygen saturation Oxygen saturation in Arterial blood by Pulse oximetry Heart rate Systolic blood pressure Diastolic blood pressure Provider Name and Address Organization Details Last Updated DateTime 4 31.3 kg/m2 86924.7 g 94 % 94 % 80 /min 140 mm[Hg] 70 mm[Hg] Carina Calabrese [place] [facility] 4 15:48:45 Date Recorded Body height Body mass index (BMI) Body weight Systolic blood pressure Diastolic blood pressure Provider Name and Address Organization Details Last Updated DateTime 03/04/2024 168.91 cm 30.8 kg/m2 52928.92 g 132 mm[Hg] 76 mm[Hg] Sima Keen [place] - [facility] 4 10:22:04 Date Recorded Body height Body mass index (BMI) Body weight Heart rate Body temperature Systolic blood pressure Diastolic blood pressure Provider Name and Address Organization Details Last Updated DateTime 4 168.91 cm 29 kg/m2 48213.5 3 g 80 /min 98.6 [degF] 133 mm[Hg] 86 mm[Hg] Jermaine Kang [place] - [facility] 4 14:35:10 Date Recorded Body height Body mass index (BMI) Body weight Oxygen saturation Oxygen saturation in Arterial blood by Pulse oximetry Heart rate Systolic blood pressure Diastolic blood pressure Provider Name and Address Organization Details Last Updated DateTime 4 168.91 cm 31 kg/m2 18743.5 1 g 98 % 98 % 70 /min 130 mm[Hg] 78 mm[Hg] Keyona Guerrero [place] [facility] 4 16:04:15 Date Recorded Body height Body mass index (BMI) Body weight Oxygen saturation Oxygen saturation in Arterial blood by Pulse oximetry Heart rate Systolic blood pressure Diastolic blood pressure Provider Name and Address Organization Details Last Updated DateTime 5 168.91 cm 30.8 kg/m2 27321.9 2 g 98 % 98 % 99 /min 128 mm[Hg] 78 mm[Hg] Keyona Guerrero [place] - [facility] 5 16:41:40 Social History Question Answer Notes LastModified by Organizat ion Details LastModified Time Tobacco Smoking Status Current Every Day Smoker Brenda Serrano [place] null, [place] - [facility] 11/24/2014 14:20:34 Do You Have An Advance Directive? No Information not available 03/06/2019 What Is Your Level Of Alcohol Consumption? Moderate Information not available 11/24/2014 Are You Blind Or Do You Have Difficulty Seeing? Yes Information not available 11/24/2014 Is Blood Transfusion Acceptable In An Emergency? Yes Information not available 03/06/2019 What Is Your Level Of Caffeine Consumption? Moderate Information not available 11/24/2014 How Much Tobacco Do You Chew? None Information not available 11/24/2014 Are You Currently Employed? No Information not available 03/06/2019 Are You Deaf Or Do You Have Serious Difficulty Hearing? Yes Information not available 11/24/2014 What Type Of Diet Are You Following? REGULAR Information not available 11/24/2014 Which Illicit Or Recreational Drugs Have You Used? No Information not available 11/24/2014 Do You Or Have You Ever Used E-cigarettes Or Vape? 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 No Information not available 11/24/2014 Hard Of Hearing Or Deaf In One Or Both Ears? No Information not available 11/24/2014 Legally Blind In One Or Both Eyes? No Information not available 11/24/2014 Live Alone Or With Others? With Others Information not available 03/06/2019 Marital Status Single Informatio n not available 11/24/2014 Do You Have A Medical Power Of Human Resources Compliance Manager? No [email or web address] Information not available 04/01/2024 What Was The Date Of Your Most Recent Tobacco Screening? 08/12/2024 Information not available 08/12/2024 How Many Children Do You Have? 0 Information not available 03/06/2019 What Is Your Current Pack Years? 30ormorepacky ears [email or web address] Information not available 04/27/2023 What Is Your Relationship Status? Single Information not available 03/06/2019 Do You Use Your Seat Belt Or Car Seat Routinely? Yes Information not available 11/30/2020 Seat Belts Used Routinely Yes Information not available 11/24/2014 Are You Sexually Active? No Information not available 03/06/2019 Smoke Alarm In Home No Information not available 11/24/2014 Do You Have Smoke And Carbon Monoxide Detectors In Your Home? Yes Information not available 11/05/2020 At What Age Did You Start Smoking Tobacco? 17 Information not available 11/24/2014 Are You Passively Exposed To Smoke? Yes Information not available 11/05/2020 Do You Or Have You Ever Used Smokeless Tobacco? Never Used Smokeless Tobacco Information not available 03/06/2019 How Much Tobacco Do You Smoke? 1 PPD Smoking 2/3 PPD Information not available 09/28/2018 General Stress Level Medium Information not available 11/24/2014 Do You Use Any Illicit Or Recreational Drugs? Yes Marijuanna Once In A While Information not available 11/05/2020 Do You Use Sunscreen Routinely? Yes Information not available 11/24/2014 Has Tobacco Cessation Counseling Been Provided? Yes Information not available 11/05/2020 On What Date Was Tobacco Cessation Counseling Provided? 08/12/2024 Information not available 08/12/2024 Do You Or Have You Ever Used Any Other Forms Of Tobacco Or Nicotine? No Information not available 11/05/2020 Sex: Female Functional Status Question Answer Note LastModified by Organization D etails LastModified Time Do you have difficulty walking or climbing stairs? No Information not available 11/24/2014 Do you have difficulty doing errands alone? No Information not available 11/24/2014 Are you able to care for yourself? Yes Information n ot available 11/30/2020 Do you have difficulty dressing or bathing? No Information not available 11/24/2014 What is your exercise level? None Information not available 11/24/2014 Mental Status Question Answer Note LastModified by Organization D etails LastModified Time Do you have difficulty concentrating, remembering or making decisions? Yes Information no t available 11/24/2014 Family History Relationship Description Onset Age of this Age Resolved Age Notes LastModified by Organization Details LastModified Time Father Asthma [email or web address] Not available 01/30/2015 12:32:56 Brother Coronary arterioscler osis [email or web address] Not available 2014 12:32:56 Brother Hypertensive disorder [email or web address] Not available 2014 12:32:56 Medical History Condition Response Coronary Artery Disease N Depression N COPD N Blood Clots N Anxiety Disorder N Acid Reflux (GERD) Y Stroke N Skin Problems Y Asthma N Liver Disease N Thyroid Problems N GI Problems N Anemia N Heart Attack (AZ) N Diabetes N Heart Failure N Other Y Atrial Fibrillation N High Blood Pressure N Muscle, Joint, or Bone Problems N Cancer N Headaches N Kidney or Bladder Problems N Allergies N Hepatitis N High Cholesterol N Seizures/Epilepsy N Osteoporosis Y Gynecological History Statement/Question Response Date of Last Mammogram 02/08/2024 Date of LMP Menses Monthly N Date of Last Pap Smear 03/04/2024 Age at Menarche 15 Current Control Method Menopause Age at First Child 43 Obstetrics History GPAL:G 0 P 0 0 0 0 Type Value Multiple Births 0 Full Term 0 Induced 0 Spontaneous 0 Premature 0 Living 0 Ectopics 0 Total 0 Immunizations Vaccine Type Date Status Note Provider Nam e and Address Organization Details Recorded Time SARS-COV-2 (COVID-19) vaccine, UNSPECIFIED 1 completed GILES Jeong null, [place] - [facility] 01/17/2024 14:20:54 SARS-COV-2 (COVID-19) vaccine, UNSPECIFIED 1 completed Holly Hui R[place] - [facility] 01/17/2024 14:20:54 SARS-COV-2 (COVID-19) vaccine, UNSPECIFIED 2 completed Holly Hui R[place] - [facility] 01/17/2024 14:20:54 SARS-COV-2 (COVID-19) vaccine, UNSPECIFIED 2 completed Holly Hui R[place] - [facility] 01/17/2024 14:20:54 Past Encounters Encounter ID Performer Location Encounter Start Date Encounter Closed Date Diagnosis/Indication Diagnosis SNOMED-CT Code Diagnosis ICD10 Code Diagnosis Note [id number] Zuleyka (Adult Med) [address] [place] [address] [id number] 0 11/24/2014 13:49:57 11/25/2014 13:13:23 Knee pain 70016602 left knee swelling , 2 weeks Hip pain 87559901 trauma as a 12 y/o right hip comes out of place but goes back in on its own Neuropathy 546367104 Tobacco user [id number] Adult [facility] th examination [id number] Psoriasis 1908199 scalp and ears [id number] Rachel Gardiner (Adult Med) [address] [place] [address] [id number] 0 01/30/2015 12:21:27 01/30/2015 12:54:59 Adult health examination 060691174 Hip pain 69425693 trauma as a 12 y/o right hip comes out of place but goes back in on its own Knee pain 55804770 left knee swelling , 2 weeks Neuropathy 258745676 Psoriasis 5512998 scalp and ears Spasm 33830096 Tobacco user [id number] [facility] [id number] KRISTAN Seymour (Adult Med) [address] [place] [address] [id number] 0 08/03/2015 11:57:08 08/03/2015 12:49:36 Psoriasis 3945347 L40.9 scalp and ears Hip pain 36315714 M25.55 1 trauma as a 12 y/o right hip comes out of place but goes back in on its own Insomnia 262695659 G47.0 0 Knee pain 54015495 M25.5 62 left knee swelling , 2 weeks Neuropathy 724503731 G62 .9 Spasm 18291690 R25.2 Tobacco user 515875728 Z 72.0 Low back pain 269140520 M54.5 [id number] KRISTAN Seymour (Adult Med) [address] [place] [address] [id number] 0 12/28/2015 11:45:06 12/28/2015 12:19:30 Low back pain 901851446 M54.5 Neuropathy 431579896 G62 .9 Tobacco user 822025099 Z 72.0 Insomnia 633193117 G47.0 0 Stress 96589542 Z73.3 no job, no car [id number] KRISTAN Seymour (Adult Med) [address] [place] [address] [id number] 07/20/2016 10:17:13 07/20/2016 11:22:18 Low back pain 821567848 M54.5 Insomnia 343815838 G47.0 0 Psoriasis 3703014 L40.9 scalp and ears Bilateral hearing loss 15277094 H91.93 Gastroesop hageal reflux disease 892079645 K21.9 Chronic cough 47453938 R 05 Neuropathy 999613939 G62 .9 Liver enzy mes level above reference range 715786052 R74.8 [id number] KRISTAN Seymour (Adult Med) [address] [place] [address] [id number] 08/25/2016 13:57:05 08/25/2016 14:53:44 Hepatitis C antibody detected 249196566 Z86.19 Liver enzy mes level above reference range 464820956 R74.8 Gastroesop hageal reflux disease 455756700 K21.9 Tobacco user 188778227 Z 72.0 Insomnia 298950944 G47.0 0 Chronic cough 80485532 R 05 [id number] KRISTAN Seymour (Adult Med) [address] [place] [address] [id number] 0 10/25/2016 15:56:20 10/25/2016 16:33:03 Hepatitis C antibody detected 771143337 Z86.19 Gastroesop hageal reflux disease 267786681 K21.9 Tobacco user 679760856 Z 72.0 Insomnia 566908589 G47.0 0 Low back pain 394168362 M54.5 Knee pain 16626633 M25.5 62 left knee swelling , 2 weeks Chronic cough 34932122 R 05 Neuropathy 405714906 G62 .9 [id number] KRISTAN Seymour (Adult Med) [address] [place] [address] [id number] 0 01/24/2017 16:21:22 01/24/2017 16:42:40 Gastroesophageal reflux disease 310127599 K21.9 Tobacco user 142036943 Z 72.0 Low back pain 373872424 M54.5 Neuropathy 151634215 G62 .9 Hip pain 92431808 M25.55 1 trauma as a 12 y/o right hip comes out of place but goes back in on its own Psoriasis 9198831 L40.9 scalp and ears [id number] KRISTAN Seymour (Adult Med) [address] [place] [address] [id number] 0 11/02/2017 12:52:32 11/02/2017 13:24:22 Pain in right knee 2226021171 99468 M25.561 Neuropathy 592685130 G62 .9 Insomnia 654717516 G47.0 0 Low back pain 674289306 M54.5 Gastroesop hageal reflux disease 622177580 K21.9 Psoriasis 0713566 L40.9 scalp and ears [id number] KRISTAN Seymour (Adult Med) [address] [place] [address] [id number] 0 12/14/2017 12:26:29 12/18/2017 09:41:39 Pain in right knee 4206979643 40680 M25.561 Low back pain 928098385 M54.5 Tear of la teral meniscus of knee 124052251 S83.261A Gastroesop hageal reflux disease 982149274 K21.9 Hip pain 34185028 M25.55 1 trauma as a 12 y/o right hip comes out of place but goes back in on its own [id number] KRISTAN Seymour (Adult Med) [address] [place] [address] [id number] 0 03/12/2018 14:16:57 03/12/2018 15:23:48 Gastroesophageal reflux disease 455719471 K21.9 Restless legs 55371711 G 25.81 Low back pain 362284886 M54.5 Tinea capitis 3547416 B3 5.0 Insomnia 104523415 G47.0 0 [id number] KRISTAN Seymour (Adult Med) [address] [place] [address] [id number] 0 05/15/2018 15:42:26 05/15/2018 17:05:33 Neuropathy 933866410 G62.9 Low back pain 418350747 M54.5 Restless legs 86358661 G 25.81 Tobacco user 341945780 Z 72.0 Gastroesop hageal reflux disease 705730185 K21.9 Screening for malignant neoplasm of breast 334407514 Z12.31 Vitamin D deficiency 347 29840 E55.9 Insomnia 809732861 G47.0 0 Psoriasis 4769292 L40.9 scalp and ears [id number] KRISTAN Seymour (Adult Med) [address] [place] [address] [id number] 0 09/28/2018 15:06:15 10/01/2018 09:49:49 Restless legs 24615014 G25.81 Vitamin D deficiency 347 68645 E55.9 Gastroesop hageal reflux disease 915845113 K21.9 Tobacco user 557125695 Z 72.0 Insomnia 165406934 G47.0 0 Low back pain 695816334 M54.5 Stress 69591659 Z73.3 no job, no car Neuropathy 696091315 G62 .9 Pain in right knee 09042 93389 94887 M25.561 Hip pain 55938500 M25.55 1 trauma as a 12 y/o right hip comes out of place but goes back in on its own [id number] KRISTAN Seymour (Adult Med) [address] [place] [address] [id number] 0 01/10/2019 15:17:58 01/10/2019 16:03:48 Psoriasis 8878922 L40.9 scalp and ears Gastroesop hageal reflux disease 460817821 K21.9 Vitamin D deficiency 347 31238 E55.9 Low back pain 274948297 M54.5 Restless legs 03277254 G 25.81 Tear of la teral meniscus of knee 809420756 S83.261A Neuropathy 839365367 G62 .9 Hip pain 96911585 M25.55 1 trauma as a 12 y/o right hip comes out of place but goes back in on its own Screening for malignant neoplasm of breast 129399678 Z12.31 Tobacco user 930141622 Z 72.0 Insomnia 127803978 G47.0 0 [id number] ABIGAIL CRANE (ENTERTAINMENT MANAGER) [address] [place] [address] [id number] 0 03/06/2019 11:58:54 03/06/2019 14:47:33 Gynecologic examination 56797521 Z01.419 58yo F with early menopause, multiple ortho problems, and smoker. FRAX score 7.3% - no need for early bone density screening at this time. Venereal d isease screening 537190609 Z11.3 Smoker 32894029 F17.200 Positive s creening for depression on PHQ-9 (Patient Health Questionnaire 9) 1167130067 46304 Z13.89 Discussed with pt. She is depressed and overwhelme d with all of her medical conditions . She has tried SSRI in the past but is not interested in restarting . Advised counseling but pt not interested at this time. Denies SI/HI. [id number] KRISTAN Seymour (Adult Med) [address] [place] [address] [id number] 0 04/18/2019 12:58:10 04/18/2019 13:38:49 Restless legs 69389363 G25.81 Chronic cough 27448056 R 05 Tobacco user 627773717 Z 72.0 Insomnia 363108082 G47.0 0 Neuropathy 538205161 G62 .9 Low back pain 674674483 M54.5 Cramp in lower limb 4499 02864 R25.2 Gastroesop hageal reflux disease 602790891 K21.9 Vitamin D deficiency 347 99537 E55.9 Gynecologi c examination 89162499 Z01.152 [id number] KRISTAN Seymour (Adult Med) [address] [place] [address] [id number] 0 05/17/2019 10:59:36 05/20/2019 09:11:57 Tobacco user 219906584 Z72.0 Vitamin D deficiency 347 36575 E55.9 Gastroesop hageal reflux disease 051720712 K21.9 Insomnia 650145602 G47.0 0 Neuropathy 122877322 G62 .9 Restless legs 46682569 G 25.81 Tear of la teral meniscus of knee 818408071 S83.261A [id number] KRISTAN Seymour (Adult Med) [address] [place] [address] 0 07/19/2019 13:56:21 07/19/2019 14:32:55 Tobacco user 427313109 Z72.0 Psoriasis 7896108 L40.9 scalp and ears Restless legs 56424175 G 25.81 Low back pain 610523537 M54.5 Gastroesop hageal reflux disease 029238038 K21.9 Insomnia 239213470 G47.0 0 Vitamin D deficiency 347 49071 E55.9 Dilated cardiomyopathy 738701602 I42.0 Depressive disorder 3548 9007 F32.9 [id number] KRISTAN Seymour (Adult Med) [address] [place] [address] [id number] 0 10/18/2019 09:41:36 10/21/2019 10:10:33 Restless legs 36955130 G25.81 Low back pain 126819483 M54.5 Dilated cardiomyopathy 625155410 I42.0 Gastroesop hageal reflux disease 195252388 K21.9 Hip pain 34744671 M25.55 1 trauma as a 12 y/o right hip comes out of place but goes back in on its own Insomnia 224025605 G47.0 0 Neuropathy 812081272 G62 .9 Tear of la teral meniscus of knee 593637293 S83.261A Tobacco user 664376369 Z 72.0 Vitamin D deficiency 347 24018 E55.9 [id number] KRISTAN Seymour (Adult Med) [address] [place] [address] [id number] 0 01/14/2020 08:15:01 01/14/2020 15:14:46 Restless legs 66491266 G25.81 Low back pain 012996337 M54.5 Tobacco user 437372014 Z 72.0 Gastroesop hageal reflux disease 679880130 K21.9 Insomnia 139839081 G47.0 0 Neuropathy 573811277 G62 .9 Dilated cardiomyopathy 592470757 I42.0 [id number] KRISTAN Seymour (Adult Med) [address] [place] [address] [id number] 0 02/28/2020 08:14:35 03/03/2020 15:22:27 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 Gastroesop hageal reflux disease 665136271 K21.9 Insomnia 596822678 G47.0 0 Low back pain 339240056 M54.5 Neuropathy 706575200 G62 .9 Restless legs 63524099 G 25.81 Tear of la teral meniscus of knee 013000100 S83.261A Tobacco user 155577673 Z 72.0 Vitamin D deficiency 347 46989 E55.9 [id number] KRISTAN Seymour (Adult Med) [address] [place] [address] [id number] 0 06/01/2020 08:44:58 06/01/2020 16:54:37 Restless legs 58178176 G25.81 Tobacco user 681576976 Z 72.0 Depressive disorder 3548 9007 F32.9 Neuropathy 954318995 G62 .9 Dilated cardiomyopathy 656956813 I42.0 Gastroesop hageal reflux disease 832813383 K21.9 Insomnia 940223978 G47.0 0 Knee pain 90947458 M25.5 64 left knee swelling , 2 weeks Low back pain 334336310 M54.5 Pain in right knee 47793 62113 81830 M25.561 Psoriasis 5559357 L40.9 scalp and ears Tear of la teral meniscus of knee 407303157 S83.261A Vitamin D deficiency 347 18781 E55.9 [id number] KRISTAN Seymour (Adult Med) [address] [place] [address] [id number] 0 08/31/2020 08:25:38 08/31/2020 17:50:56 Solitary nodule of lung 902033470 R91.1 Gastroesop hageal reflux disease 802604390 K21.9 Psoriasis 1185888 L40.9 scalp and ears Spasm 89954076 R25.2 Dilated cardiomyopathy 081371966 I42.0 Depressive disorder 3548 9007 F32.9 Chronic cough 24786936 R 05 Hip pain 55237572 M25.55 1 trauma as a 12 y/o right hip comes out of place but goes back in on its own Insomnia 239812704 G47.0 0 Neuropathy 716954122 G62 .9 Pain in right knee 61877 09270 68640 M25.561 Knee pain 45068441 M25.5 62 left knee swelling , 2 weeks Tobacco user 540316684 Z 72.0 Vitamin D deficiency 347 99566 E55.9 [id number] ABIGAIL CRANE (ENTERTAINMENT MANAGER) [address] [place] [address] [id number] 0 11/05/2020 14:34:41 11/09/2020 17:15:09 Menopausal syndrome 550474839 N95.9 Patient unaware of existing escitalopr am prescripti on and not taking - discontinu ed in favor of paroxetine for mood and hot flash control. Advised pt keep rooms cool and sleep with fan. Dress in layers so that clothing can be removed when hot flash occurs and wear natural fabrics. Avoid foods that raise body temperatur e such as alcohol, caffeine, hot liquids, spicy foods. Eat smaller meals throughout the day. Get at least 30 minutes of exercise on most days of the week. Screening for malignant neoplasm of breast 610576965 Z12.31 Normal mammogram in 2019. Annual screening ordered Screening for osteoporosis 614905305 Z13.820 Extensive smoking history and early menopause warrant bone density scan at this time. [id number] KRISTAN Seymour (Adult Med) [address] [place] [address] [id number] 0 11/30/2020 08:46:20 11/30/2020 15:21:18 Tobacco user 657305456 Z72.0 Pain in right knee 25534 89731 12389 M25.561 Vitamin D deficiency 347 34650 E55.9 Spasm 81503595 R25.2 Restless legs 87711294 G 25.81 Neuropathy 390622631 G62 .9 Gastroesop hageal reflux disease 796188527 K21.9 Dilated cardiomyopathy 734761390 I42.0 [id number] ABIGAIL CRANE (ENTERTAINMENT MANAGER) [address] [place] [address] [id number] 0 12/04/2020 14:40:18 12/07/2020 07:08:43 Gynecologic examination 53904744 Z01.419 -clinical breast & pelvic examinatio ns completed today, unremarkab le-cervica l cancer screening UTD: last Pap 03/06/19, negative. Updated today per pt request. Counseled pt on current guidelines .-mammogra m completed 11/20/20. BIRADS 1.-routine nuswab completed, treat as needed-Edu cated osteoporos is prevention including calcium rich diet, weight bearing exercise. Will start supplement . Bone density scan normal 11/20/20.-R TC in 1yr Venereal d isease screening 540551936 Z11.3 Microscopic hematuria 19 5406145 R31.29 Moderate blood on UA with small protein. Will send for micro and culture. [id number] KRISTAN Seymour (Adult Med) [address] [place] [address] [id number] 0 03/02/2021 12:50:52 03/02/2021 16:06:38 Pain in right knee 0642143810 05356 M25.561 Constipation 83908191 K5 9.00 Depressive disorder 3548 9007 F32.9 Dilated cardiomyopathy 403596018 I42.0 Gastroesop hageal reflux disease 423045859 K21.9 Hip pain 53267354 M25.55 1 trauma as a 12 y/o right hip comes out of place but goes back in on its own Insomnia 742626837 G47.0 0 Knee pain 51475047 M25.5 62 left knee swelling , 2 weeks Low back pain 885900761 M54.5 Neuropathy 104505881 G62 .9 Psoriasis 4258366 L40.9 scalp and ears Restless legs 71641690 G 25.81 Vitamin D deficiency 347 00763 E55.9 [id number] KRISTAN Seymour (Adult Med) [address] [place] [address] [id number] 0 05/31/2021 14:54:05 06/01/2021 08:29:38 Solitary nodule of lung 860126652 R91.1 Dilated cardiomyopathy 337933732 I42.0 Hepatitis C antibody detected 838793878 Z86.19 Pain in right knee 12177 85461 92398 M25.561 Depressive disorder 3548 9007 F32.9 Hip pain 95807593 M25.55 1 trauma as a 12 y/o right hip comes out of place but goes back in on its own Insomnia 489891487 G47.0 0 Low back pain 327807961 M54.50 Neuropathy 191244100 G62 .9 Psoriasis 8923009 L40.9 scalp and ears Restless legs 15928857 G 25.81 Tear of la teral meniscus of knee 974369983 S83.261A Vitamin D deficiency 347 34302 E55.9 Tobacco user 610000355 Z 72.0 [id number] KRISTAN Seymour (Adult Med) [address] [place] [address] 84852-211 0 07/19/2021 12:38:12 07/20/2021 10:14:30 Chronic cough 09367139 R05.3 Dysuria 41236817 R30.9 Low back pain 508156778 M54.50 Cramp in lower limb 4499 11471 R25.2 Vitamin D deficiency 347 15401 E55.9 Restless legs 18116169 G 25.81 Psoriasis 4225438 L40.9 scalp and ears Neuropathy 552557647 G62 .9 Insomnia 470059545 G47.0 0 Hip pain 16999432 M25.55 1 trauma as a 12 y/o right hip comes out of place but goes back in on its own Gastroesop hageal reflux disease 737538049 K21.9 Dilated cardiomyopathy 167310205 I42.0 [id number] KRISTAN Seymour (Adult Med) [address] [place] [address] 50197-019 0 08/26/2021 16:35:01 08/27/2021 09:34:24 Dysuria 81537464 R30.9 resolved Gastroesop hageal reflux disease 813022616 K21.9 Hepatitis C antibody detected 461139555 Z86.[address] 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 Psoriasis 5835496 L40.9 scalp and ears Restless legs 50484669 G 25.81 Vitamin D deficiency 347 49381 E55.9 Depressive disorder 3548 9007 F32.9 Dilated cardiomyopathy 025632924 I42.0 Hip pain 88990786 M25.55 1 trauma as a 12 y/o right hip comes out of place but goes back in on its own Insomnia 531533993 G47.0 0 Low back pain 650385668 M54.50 Pain in right knee 90948 58857 01994 M25.561 Tear of la teral meniscus of knee 717206290 S83.261A Tobacco user 045945210 Z 72.0 [id number] KRISTAN Seymour (Adult Med) [address] [place] [address] 12254-976 0 12/30/2021 14:17:24 12/31/2021 18:08:42 Renewal of prescription 176824019 Z76.0 Solitary n odule of lung 163066785 R91.1 Neuropathy 587134833 G62 .9 Cramp in lower limb 4499 01189 R25.2 Menopausal syndrome 1237 97840 N95.9 Low back pain 081801880 M54.50 Bilateral hearing loss 00346459 H91.93 Depressive disorder 3548 9007 F32.9 Dilated cardiomyopathy 968071122 I42.0 Gastroesop hageal reflux disease 813858492 K21.9 Insomnia 543510199 G47.0 0 Psoriasis 2134429 L40.9 Restless legs 33881802 G 25.81 Vitamin D deficiency 347 32126 E55.9 [id number] KRISTAN Seymour (Adult Med) [address] [place] [address] 62050-189 0 04/04/2022 14:25:56 04/05/2022 09:37:38 Restless legs 29729870 G25.81 Neuropathy 856808992 G62 .9 Gastroesop hageal reflux disease 812187100 K21.9 Low back pain 483657909 M54.50 Vitamin D deficiency 347 71251 E55.9 Insomnia 373843012 G47.0 0 Tear of la teral meniscus of knee 002768627 S83.261A [id number] MD Zuleyka Kumar (Adult Med) [address] [place] [address] 86402-435 0 07/04/2022 14:22:10 07/07/2022 14:40:25 Obesity 228497480 E66.9 BMI is 32.2. she has been advised to watch her diet, exercise and lose weight. Chronic cough 25783850 R 05.3 Advised to quit smoking. Dilated cardiomyopathy 857174124 I42.0 Under the card of her cardiologi st., Gastroesop hageal reflux disease 151509104 K21.9 Will refil med. Hepatitis C antibody detected 720912971 Z86.19 Will refer to GI specialist . she agreed. Psoriasis 3538485 L40.9 Stable. 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 Tobacco user 578659103 Z 72.0 Advised her to quit smoking. Vitamin D deficiency 347 48199 E55.9 Will ordered Vitamin D supplement ., Smoker 30626367 F17.200 LDCY+T and advised her to quit smoking. Cramp in lower limb 4499 07965 R25.2 Will refer muscle relaxant. Neuropathy 273964831 G62 .9 Will refill med. Restless legs 11277026 G 25.81 Will refill med. Influenza vaccination declined 839246168 Z28.21 She refused 07-04-2022 . [id number] MD Zuleyka Kumar (Adult Med) [address] [place] [address] 23023-636 0 10/03/2022 12:17:46 10/04/2022 11:18:20 Community acquired pneumonia 080548971 J18.9 Under the care of her lung specialist .She just finished her ABS, no tumor of lung she said as been told. Neuropathy 962447347 G62 .9 Will refill med. On gabapentin three times/day, but also wants to take at night. Chronic ob structive pulmonary disease 17117776 J44.9 Under the care of her lung specialist . HIV screen ing declined 3667888846 29582 Z53.20 Declined today. 10-03-22. [id number] MD Zuleyka Kumar (Adult Med) [address] [place] [address] 14014-061 0 01/02/2023 12:21:58 01/03/2023 10:14:08 Acute low back pain 175800922 M54.50 Left lower back pain for about weeks. went to chiropract or but her insurance won't cover. Already has gabapentin and cyclobenza prim and ropinirole . Already got refills. Will try PT for 6 weeks. she will let this office know about the progress of PT. Smoker 22007449 F17.200 Advised her to quit smoking. She has cut down the cigarettes smoking. She is aware of cigarettes smoking can cause permanent emphysema, cancer of lung, throat or mouth and other diseases. Osteoarthr itis of knee 079659563 M17.9 On cyclobenza prim Restless legs 83464422 G 25.81 Will refill med. On ropinirole [id number] MD Zuleyka Kumar (Adult Med) [address] [place] [address] 00746-941 0 04/27/2023 11:26:09 05/02/2023 14:23:49 Screening for malignant neoplasm of colon 690001126 Z12.11 She agreed for the screening. Skin lesion 36275869 L98 .9 Multiple on the skin. , wants dermatolog ist referral. Obesity 637931440 E66.9 BMI is 32.2. she has been advised to watch her diet, exercise and lose weight. BMI is 33.4, 04-27-23. [id number] MD Zuleyka Castro (Adult Med) [address] [place] [address] 64671-249 0 10/02/2023 16:20:09 10/06/2023 12:23:11 Paresthesia of upper limb 37563937 R20.2 Intermitte nt paresthesi a of right upper arm from elbow to hand and right lower extremity. Both are related to positional changes. Hand paresthesi a improves with lowering arm and shaking it. Leg paresthesi a improves with sitting back in chair or standing. Both these problems sound like they are due to nerve compressio n. Will get an EMG and NCS. Will also order a back xray since leg issues affect the whole extremity and could also be due to sciatica. Follow up in three months. Seek immediate medical attention if worse or if develops any neurologic changes. Paresthesi a of lower extremity 077463713 R20.2 Low back pain 789851535 M54.50 Pain of ri ght knee joint 9086058291 28569 M25.561 Xray right knee. Hyperlipid emia screening 916543582 Z13.220 Chronic ob structive pulmonary disease 98262490 J44.9 Continue inhaler. [id number] Lakisha Enamorado MD [facility] (Adult Med) [address] [place] [address] 01/01/2024 15:32:36 01/09/2024 12:24:03 Body mass index 30+ - obesity 256365307 Z68.32 Nicotine user 213826239 Z72.0 Working on quitting. Yessi t est positive 608737373 R29.898 Referral to orthopedic surgeon to evaluate for possible cartilage tear. Follow up with me after this in four months. Paresthesia 58898657 R20 .2 It is not clear why she is having the numbness in her right upper and lower extremitie s. Will refer her to neurology for further evaluation . Screening for malignant neoplasm of breast 392005609 Z12.39 Due for screening mammogram. Laboratory test result abnormal 955874175 R89.9 Recent random glucose elevated. Will return for fasting glucose. Essential hypertension 72663829 I10 Followed by cardiology . Slightly elevated in office today but patient was upset. Said she keeps track of it at home and it is normally lower, and it is followed by the cardiologi st. She has not tolerated other medication s they have put her on, so at times it runs on the higher side. She will continue to check it at home and follow with the cardiologi st. Chronic ob structive pulmonary disease 34384997 J44.9 Uses Albuterol as needed. Sleep apnea 06286169 G47 .30 Could not tolerate CPAP. Dilated cardiomyopathy 864273862 I42.0 ICD placed. On medication to treat heart failure. 35% EF. Followed by cardiology . Restless legs 48982573 G 25.81 Takes Gabapentin and Ropinirole and Cyclobenza ham[place]. Will see neurologis t for further evaluation . Screening mammography 24 869290 Z12.31 [id number] SARAH DELVALLE MD [facility] (ENTERTAINMENT MANAGER) [address] [place] [address] 03/04/2024 09:27:27 03/13/2024 10:55:39 Gynecologic examination 59680444 Z01.419 Cervical cancer screening q5y w/ [facility], 5, or 10 years depending on method - last colonoscop y 2018. Pt reports recent cologuard but no record of it.Mammogr aphy q1-2 years ( completed last month with normal result). Ulceration of vulva 6864 0004 N76.6 Pt presents with ongoing lesion for the past 6 weeks that's painful. Pt believed to old bartholin cyst scar irritation . On physical exam, lesion looked like a circular uncovered blister with a yellowish white base. Located at the left lower vaginal opening.-- > Discussed with patient, what the most likely diagnosis could be, which is vulvar aphthous ulcer. At the moment, PCR sample collected to rule out RPR and HSV1/2.--> Recommend using Vaseline as a barrier to reduce irritation and to gently clean the area.--> Pending lab results with plans to follow up in 2 to 3 weeks [id number] Jarrell Odom MD [facility] [address] [address] 04/01/2024 14:21:27 04/02/2024 09:02:43 Depressive disorder 71538523 F32.9 Gastroesop hageal reflux disease 747027294 K21.9 Hepatitis C antibody detected 531201364 Z86.19 Neuropathy 133371803 G62 .9 Solitary n odule of lung 697365576 R91.1 Tobacco user 145285859 Z 72.0 Iliotibial band friction syndrome of right knee 3939562799 95504 M76.31 Chondromal acia of right patella 0503569548 6406050 M22.41 Flexion co ntracture of the knee 244873023 M24.561 History of right total knee replacement 3117221538 919322 Z96.651 [address] [id number] MD Zuleyka Castro (Adult Med) [address] [place] [address]87[address]757 0 05/01/2024 15:52:13 05/07/2024 11:27:46 Essential hypertension 43396694 I10 Blood pressure good today. She said insurance would not cover her blood work when I ordered it before. I told her I thought they should cover this for high blood pressure. I told her to check with them again. Continue present medication . Multiple joint pain 3567 8005 M25.50 Breathing painful 708061 01 R07.1 Pain with inspiratio n. Treated for bronchitis by ER and some improvemen t but still having pain. They did not do a CXR and she is a smoker so I will order one. Shoulder pain 12806149 M 25.511 Will x-ray shoulder. Neuropathy 744351619 G62 .9 Abnormal EMG/NCS. Has appointmen t with helen westbrook in June. Gastroesop hageal reflux disease 348050803 K21.9 Restless legs 16967856 G 25.81 Continue Ropinirole . Chronic ob structive pulmonary disease 60580939 J44.9 Continue Symbicort twice a day regularly and Ventolin QID prn. Nicotine user 596324078 Z72.0 Working on quitting. [id number] MD Zuleyka Castro (Adult Med) [address] [place] [address] 08/12/2024 16:21:36 08/12/2024 17:43:54 Pain in right arm 000155116 M79.601 Pain has increased and now has severe pain right upper arm just below shoulder and significan t limitation in movement. Will proceed with xray or humerus and shoulder. If negative will get MRI. Paresthesi a of lower extremity 133781481 R20.2 Saw helen westbrook. Had MRI of neck and lumbar spine done. Was told over the phone she had no nerve damage and she should do physical therapy. She is feeling frustrated because she really was given no explanatio n for her pain. I will reach out to them to try to get more informatio n. Essential hypertension 56913945 I10 Blood pressure good today. Continue present medication . Last potassium was elevated. Will have her come back for fasting blood work. Will get routine lipid panel, chem panel, and CBC. Will also get urine for albumin. Chronic ob structive pulmonary disease 98119619 J44.9 Continue Symbicort twice a day regularly and Ventolin QID prn. Health Concerns Section Related Observation LastModified by Organization Detai ls LastModified Time None Recorded Concern Status LastModified by Organization Details LastModified Time None Recorded Advance Directives Directive N: Payers Encounter Date Sequence Insurance Name Policy Number Policy Booker Covered Member ID Booker Member ID Guarantor Name 01/01/2024 2 [place] WHEN MEDICARE OR MEDICARE REPLACEMENT PRIMARY) Mayra Sally [id number] Mayra Sally 01/01/2024 1 [facility] (MEDICARE REPLACEMENT/AD VANTAGE - PPO) [id number] Mayra J Sally [id number] Mayra Sally 03/04/2024 2 [place] WHEN [place] MEDICARE REPLACEMENT PRIMARY) Mayra Sally [id number] Mayra Sally 03/04/2024 1 [facility] (MEDICARE REPLACEMENT/AD VANTAGE - PPO) [id number] Mayra J Sally [id number] Mayra Sally 04/01/2024 1 [facility] (MEDICARE REPLACEMENT/AD VANTAGE - PPO) [id number] Mayra J Sally [id number] Mayra Sally 04/01/2024 2 [place] OR MEDICARE REPLACEMENT PRIMARY) Mayra Sally [id number] Mayra Sally 05/01/2024 2 [place] OR MEDICARE REPLACEMENT PRIMARY) Mayra Sally [id number] Mayra Sally 05/01/2024 1 [facility] (MEDICARE REPLACEMENT/AD VANTAGE - PPO) [id number] Mayra J Sally [id number] Mayra Sally 08/12/2024 2 [place] OR MEDICARE REPLACEMENT PRIMARY) Mayra Sally [id number] Mayra Sally 08/12/2024 1 [facility] (MEDICARE REPLACEMENT/AD VANTAGE - PPO) [id number] Mayra J Sally [id number] Mayra Sally Notes Date Note Type Note Provider Name and Address Organization Details Recorded Time 01/01/2024 text/html follow up, had E MG and NCS, right leg and arm go numb, low back pain, right knee has been bothering her, had right knee replacement two years ago in September, pops when you bend it, hurts to bend it, if has to walk any length at all it hurts, takes medicine for restless legs, takes cardiac medicine for heart failure, had ICD placed, no blockage, blood pressure usually around 130's, could not tolerate blood pressure medicine, mad today so that may be why it is up, due for mammogram Lakisha Enamorado MD Attn: [address] [place], [address], [facility] 01/01/2024 18:27:52 03/04/2024 text/html Annual GYNReport ed bypatient.History: no change in interval history; Irritation on the lower left inside of the labial Urinary symptoms:No hematuria; No incontinence Vulva:No genital lesion Vagina:Normal vaginal discharge Breast:No breast pain; No breast lump; No nipple discharge; last mammogram done on 02/08/24 with normal result Sexual complaints:No sexual complaints; No pain during intercourse; pt is not sexually active Menopausal Symptoms:Hot flashes Psychological symptoms:No depression; No anxiety Preventive measures:Encourage self breast examination; Encourage regular exercise; Encourage no tobacco use; colonoscopy done in 2018 and cologuard but unsure of the date Mayra is a 63 yo F who presents today for annual well woman exam. H/o Bartholin cyst- Onset about 20 yrs ago. Pt reports remembering a balloon catheter being placed with incision for drainage. Pt reports feeling irritation now in the same site for the last 6 weeks. Patient reports the lesion to be painful specially when she is wiping after using the restroom. Pt denies being sexually active in the last 16 yrs. Patient tried neosporin with no relief and also tried steroid cream. SARAH DELVALLE MD Attn: [address] [place], [address], [facility] 03/11/2024 17:55:09 04/01/2024 text/html KneeReported bypatient.Location :right; anterior; lateral; deep Quality:aching; frequent; not changing Severity:mild Duration:continuou s since onset; started around October 2023 Timing:abrupt Context:atraumatic Alleviating Factors:rest Aggravating Factors:walking; bending/squatting; downstairs; daytime; cold weather; damp weather Associated Symptoms:no numbness; no tingling; no swelling; no redness; no warmth; no ecchymosis; no catching/locking; no popping/clicking; no buckling; no grinding; no instability; no radiation down leg; no drainage; no fever; no chills; no weight loss; no change in bowel/bladder habits;weakness Previous Surgery:surgical procedure:; Rt TKR 2021 Prior Imaging:no recent studies Previous Injections:none Previous PT:noneNotes:no injuries Jarrell Odom MD [address] [place], [address], [facility] 04/01/2024 14:51:43 05/01/2024 text/html follow up, has a pt with neurologist in June, shoulder pain started about four weeks ago, notices it anytime tries to raise it, hard to sleep, last Monday went to Urgent Care in [place] and treated for bronchitis with anitbiotic and steroid, still taking anti-inflammatory, better but still hurting, if takes a deep breath has pain, hurts with deep breathing, still smoking but trying to cut down, hard to quit, has tried patches, had lung biopsy after last LDCT hands are hurting worse today, hard to make a fist, when leave getting lab work, Lakisha Enamorado MD Attn: [address] [place], [address], [facility] 05/02/2024 09:33:29 08/12/2024 text/html spoke to neurologist, had bulging disc, no surgery required, physical therapy, pain in upper shoulder, in last few weeks it is going down arm, any movement makes pain worse, feels like something is stabbing her, has been four months, does not have separate pain from shoulder pain, raising arm up at all hurts, can't sleep because hurts to lay on shoulder, takes two tylenol for pain, Lakisha Enamorado MD Attn: [address] [place], [address], [facility] 08/12/2024 17:43:51 OBGyn Episode No OBEpisode recorded.
--- OUTSIDE RECORDS SUMMARY | 2024-08-27 16:07 | XMS_ITS | Encounter Summary ---
Author Organization [facility] Address [address] [place], [place] [address] [address] Care Team Providers Care Research/Program Director Name Role Phone Dinora Banks MD Primary Care Provider [phone] Encounter Details Date Type Department Care Team (Late st Contact Info) Description 08/31/2022 Telephone [facility] Pul[facility], Critical Care and Sleep Medicine [address] [facility] [place] [id number] Mason Lindsay MD [address] [facility] 2L DIV OF PULMONARY/[place] [address] Social History Tobacco Use Types Packs/Day Years Used Date Smoking Tobacco: Never Assessed Sex and Gender Information Value Date Recorded Sex Assigned at Not on file Gender Identity Not on file Sexual Orientation Not on file documented as of this encounter Miscellaneous Notes * Telephone Encounter - Ermelinda Burnett - 08/31/2022 9:10 AM CDT Current Provider name: Dr. Mason Lindsay Reason for call: Ms. Mayra Zavala called to get a letter from the office written to the [facility] courts to let them know she can not start Jury Duty September 12, 2022 due to the testing Dr. Lindsay needs to get done. Fax letter to: [facility] Jury Commission, [facility], Room 6 Lower Level, [address] [place] [phone].. Please include her Juror #: [id number] This letter can be FAXED two weeks prior to her Jury Date: [phone] Patient Call Back number: [phone] documented in this encounter Plan of Treatment Not on file documented as of this encounter Visit Diagnoses Not on filedocumented in this encounter Care Teams Research/Program Director Relationship Specialty Start Date End Date Dinora Banks MD [address] [place] [address] PCP - General 08/23/22 documented as of this encounter
--- OUTSIDE RECORDS SUMMARY | 2024-08-27 16:07 | XMS_ITS | Data Portability ---
Author Organization [place] - [facility] [employer], Main Office Address [address] [place] [address] Care Team Providers Care Director Of Development And Marketing Name Role Phone LITZY RICHARDSON Primary Care Provider LITZY RICHARDSON Referring Provider Assessment Encounter Date Assessment Date Assessment LastModified [...] (+) BD response Nicotine cessation counseling provided. Orwin for quitting nicotine include getting ready, getting [...] in Quit For Life program Registering at [email or web address] Making a call to 9-763-SPZV-NOW ( ). A strong, clear, personalized message [...] failure or relapse. Patient can enroll in [facility]'s smoking cessation class through Jennie Jain [...] referred to Dr. Mason Lindsay , at [facility] for advanced diagnostic and therapeutic bronchoscopy, [...] None recorded. Referral physical therapist referral - Nisreen September [id number] [email or web address] [facility] Physical, Occupational & [facility] Medicine [facility] Re[facility], [address] [place], [address], 00:41:14 Procedures None recorded. Surgeries None recorded. Imaging None recorded. Medication Orders Mobic 15 mg tablet 2023 024 [email or web address] [id number], [address], [place], [id number], 4 00:41:14 albuterol sulfate HFA 90 mcg/actuat ion aerosol inhaler 2022 023 [email or web address] [facility] [address] [place], [place], [id number], 4 10:59:58 budesonide -formotero l HFA 160 mcg-4.5 mcg/actuat ion aerosol inhaler 2022 023 LISA [facility], [address], [place], [id number], 3 15:08:47 Patient TargetsNo targets recorded. Patient InstructionsNo instructions [...] more view No observ ation record ed. [id number] [facility] [address], [place], [address], 08/10/2022 20:10:53 08/05/19 23 09/17/2020 CT, chest , w/ contr ast No observ ation record ed. [id number] Not Available 08/10/2022 20:10:53 08/05/19 23 05/15/2019 LDCT, chest , for lung cance r scree ton No observ ation record ed. [id number] Not Available 08/10/2022 20:10:53 08/19/19 23 07/18/2022 LDCT, chest , for lung cance r scree ton No observ ation record ed. BARCODE Not Available 2022 13:24:29 08/19/19 23 08/16/2022 PFT, compl ete No observ ation record ed. BARCODE Not Available 2022 13:26:34 08/24/19 23 08/23/2022 PET-C T, skull base to mid-t high scan No observ ation record ed. BARCODE [facility] [address], [place], [address], 08/23/2022 18:28:15 02/18/20 23 02/14/2023 home sleep study No observ ation record ed. BARCODE Not Available 2022 14:00:16 03/01/20 23 02/14/2023 home sleep study No observ ation record ed. [email or web address] [facility] [address], [place], [address], 03/01/2023 16:40:27 01/02/20 24 10/10/2023 XR, knee, 3 view No observ ation record ed. [email or web address] Not Available 12/11 17:06:51 Result Notes None recorded. Problems Name Problem SNOMED Code Status Onset Date Resolution Date Notes Provider Name and Address Organization Details Recorded Time Localized, primary osteoarthr itis of the hand 068462462 Active Not Available [employer] 20:08:09 Low back pain 343180772 Active 2018 Not Available [facility] 20:08:09 Bunion 230485693 Active Not Available [facility] 20:08:09 Mild chronic obstructiv e pulmonary disease 212649151 Active 2022 Leonel Tolliver MD [address], [place], [address] , [employer] 3 14:57:37 Mediastina l lymphadeno nahomi 65980427 Active 2022 Leonel Tolliver MD [address], [place], [address] , [employer] 3 14:59:52 Hilar lymphadeno nahomi 42270580 Active 2022 Leonel Tolliver MD [address], [place], [address] , [employer] 3 15:00:02 Tendinitis of right patellar tendon 9610370820474 09 Active 2023 Mason Baeza MD [address], [place], [address] , [employer] 4 13:25:36 Notes:Medical History: Psori asis Depression L>R hearing loss Right tinnitus Rhinitis IgE 48 IU/mL AAT PiMM 157 mg% Nicotine use Mild ACO Obesity with mod OSAHS, AHI = 25, 02/14/23 Dilated cardiomyopathy Hypertension Hyperlipidemia CIELO Hepatitis C Vit D deficiency RLS OA Low back pain Left bunion Procedure History: Colonoscopy 2018 Right total knee replacement 2021 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 Procedures Surgical History Date Name Laterality Status Provider Name and Address Organization Details Recorded Time 09/15/19 total knee replacement completed Not Available [facility] 08/10/2022 20:07:02 Defibrillator completed GILES Brenner [employer] 01/22/2024 11:00:50 Imaging Results Imaging Date Name Status LastModified by Organiz ation Details LastModified Time 09/30/2021 XR, foot, 3 or more view completed [id number] [facility] [address], [place], [address], 08/10/2022 20:10:53 09/17/2020 CT, chest, w/ contrast completed [id number] Information not available 08/10/2022 20:10:53 05/15/2019 LDCT, chest, for lung cancer screening completed [id number] Information not available 08/10/2022 20:10:53 07/18/2022 LDCT, chest, for lung cancer screening completed [facility] Information not available 08/18/2022 13:24:29 08/16/2022 PFT, complete completed [facility] Information not available 08/18/2022 13:26:34 08/23/2022 PET-CT, skull base to mid-thigh scan completed [facility] [address], [place], [address], 08/23/2022 18:28:15 02/14/2023 home sleep study completed [facility] Information not available 02/17/2023 14:00:16 02/14/2023 home sleep study completed [address] [facility] [address], [place], [address], 03/01/2023 16:40:27 10/10/2023 XR, knee, 3 view completed [email or web address] Information not available 01/02/2024 17:06:51 Procedure Notes None recorded. Medical Equipment None Reported. Allergies Allergen ID Allergen Name Allergen Category Reaction Reaction Severity Criticality Documentation Date Start Date Code Code System Note Provider Name and Address Organization Details Recorded Time 51659 clindamyc in Not available Not available Not [...] % 84 /min 15 /min 98.5 [degF] 31436.6 6 g 140 mm[Hg] 70 mm[Hg] Not Available [facility] 3 20:07:23 Date Recorded Body height Body mass index (BMI) Body weight Body temperature Heart rate Oxygen saturation Oxygen saturation in Arterial blood by Pulse oximetry Systolic blood pressure Diastolic blood pressure Provider Name and Address Organization Details Last Updated DateTime 3 171.45 cm 31.3 kg/m2 06452.2 5 g 98.3 [degF] 82 /min 96 % 96 % 130 mm[Hg] 82 mm[Hg] ROSELIA Tracey - [facility] 14:37:02 Date Recorded Heart rate Respiratory rate Provider N farzana and Address Organization Details Last Updated DateTime 09/05/2022 82 /min 15 /min Leonel Tolliver MD [address], [facility] [address], [place], [address], [facility] 09/05/2022 14:48:25 Date Recorded Body height Body mass index (BMI) Body weight Pain severity - 0-10 verbal numeric rating [Score] - Reported Provider Name and Address Organization Details Last Updated DateTime 01/22/2024 170.18 cm 30.7 kg/m2 05850.1 g 6 Kimmy Menchaca Liane [facility] 01/22/2024 10:59:11 Social History Question Answer Notes LastModified by Organizat ion Details LastModified Time Tobacco Smoking Status Current Every Day Smoker Not Available [facility] 08/10/2022 20:06:48 What Is Your Level Of Alcohol Consumption? Moderate [id number] Information not available 08/10/2022 What Is Your Level Of Caffeine Consumption? Occasional MIGRATION.26972 98220 Information not available 08/10/2022 In The 14 Days Before Symptom Onset, Have You Had Close Contact With A Laboratory-confi rmed COVID-19 While That Case Was Ill? No MIGRATION.00794 78211 Information not available 08/10/2022 In The 14 Days Before Symptom Onset, Have You Had Close Contact With A Person Who Is Under Investigation For COVID-19 While That Person Was Ill? No MIGRATION.86371 34881 Information not available 08/10/2022 What Type Of Diet Are You Following? REGULAR MIGRATION.54078 61363 Information not available 08/10/2022 Which Illicit Or Recreational Drugs Have You Used? Marijuana MIGRATION.72213 13956 Information not available 08/10/2022 Do You Have An Electrostatic Air Filter? No MIGRATION.31646 89563 Information not available 08/10/2022 Do You Have A Humidifier? No MIGRATION.18834 56690 Information not available 08/10/2022 Where Do You Live? [place] MIGRATION.70874 38487 Information not available 08/10/2022 Do You Have Moisture Problems In Your Home? No MIGRATION.45192 77023 Information not available 08/10/2022 What Was The Date Of Your Most Recent Tobacco Screening? 01/22/2024 [email or web address] Information not available 01/22/2024 Do You Have Any Pets? Yes MIGRATION.03777 18342 Information not available 08/10/2022 Do You Use Your Seat Belt Or Car Seat Routinely? Yes [email or web address] Information not available 09/05/2022 Do You Have Smoke And Carbon Monoxide Detectors In Your Home? Yes MIGRATION.50459 03666 Information not available 08/10/2022 Are You Passively Exposed To Smoke? No MIGRATION.32236 87422 Information not available 08/10/2022 How Much Tobacco Do You Smoke? 1 PPD MIGRATION.44889 21781 Information not available 08/10/2022 Do You Use Any Illicit Or Recreational Drugs? Yes MIGRATION.07461 53705 Information not available 08/10/2022 Do You Use Sunscreen Routinely? No MIGRATION.30864 35139 Information not available 08/10/2022 Have You Recently Traveled Abroad? No MIGRATION.30108 61082 Information not available 08/10/2022 Do You Have Any Dietary Restrictions? No MIGRATION.15909 14512 Information not available 08/10/2022 Sex: Unknown Functional Status Question Answer Note LastModified by FamilyID ion Details LastModified Time What is your exercise level? Occasional [id number] 26 Information not available 08/10/2022 Mental Status [...] SNOMED-CT Code Diagnosis ICD10 Code Diagnosis Note 027937 _ATHENA_M IGRATION_ DEFAULT_1 _1 , 09/24/2021 00:00:00 09/30/2021 10:08:17 [id number] [facility] [address] [address] 08/02/2022 00:00:00 08/02/2022 16:18:50 [id number] Leonel Tolliver MD [facility] [address] [address] 09/05/2022 14:21:20 09/06/2022 08:49:31 Mild chronic obstructive pulmonary disease 049489501 J44.9 Hilar lymphadenopathy 87 992287 R59.0 [id number] Mason Baeza MD [facility] [address] [place] [address] 01/22/2024 10:31:13 01/22/2024 11:41:00 History of right total knee replacement 7988123548 744169 Z96.651 Tendinitis of right patellar tendon 6556239791 54531 M76.51 Health Concerns Section Related Observation LastModified by Organization Detai ls LastModified Time None Recorded Concern Status LastModified by Organization Details LastModified Time None Recorded Advance Directives Directive None Recorded Payers Encounter Date Sequence Insurance Name Policy Number Policy Booker Covered Member ID Booker Member ID Guarantor Name 09/05/2022 1 [facility] - ACCESS SNP DUAL ELIGIBLE (MEDICARE - MEDICAID REPLACEMENT HMO) Mayra Zavala [id number] Mayra Zavala 01/22/2024 2 [place] WHEN MEDICARE OR MEDICARE REPLACEMENT PRIMARY) Mayra Zavala [id number] Mayra Zavala 01/22/2024 1 [facility] (MEDICARE REPLACEMENT/AD VANTAGE - PPO) [id number] Mayra Zavala [id number] Mayra Zavala Notes Date Note Type Note [...] factors: rest x 1 minuteModified Medical [employer] (mMRC) Dyspnea Scale - Grade 1Grade 0 I only get breathless with strenuous exercise .Grade 1 I get short of breath when hurrying on the level or walking up a slight hill .Grade 2 I walk slower than people of the same age on the level because of breathlessness or have to stop for breath when walking at my own pace on the level .Grade 3 I stop for breath after walking about 100 yards or after a few minutes on the level .Grade 4 I am too breathless to leave the house or I am breathless when dressing .Treatment history:Albuterol HFA as needed since 2018, [...] slight chance of dozing. Leonel Tolliver MD [address] [place] [address], [place], [address], [place] [facility] 09/05/2022 15:10:50 OBGyn Episode No OBEpisode recorded.
--- OUTSIDE RECORDS SUMMARY | 2024-08-27 16:07 | XMS_ITS | Clinical Summary ---
Author Organization [facility] Address [address] [place] [address] Care Team Providers Care Box Spring Frame Builder Name Role Phone Dinora Banks MD Primary Care Provider [phone] Source Comments [facility],non-owned Affiliates and Associated Physician Practices is amultiple site organization consisting of ambulatory clinics and hospital sitesin [place], [place]. This disclosure is being madepursuant to the Care Everywhere program and may not contain all information available regarding this patient. Last updated 18.[facility] Allergies No known active allergies Medications * Be aware that medications may not be up to date on this document. Alwaysverify current medications with the patient. Medication Sig Dispensed Refills Start Date End Date Status gabapentin (Neurontin) 600 MG tablet Take 1 (one) tablet by mouth at bedtime 4 tabs at bedtime 08/08/2022 Active rOPINIRole (Requip) 3 MG tablet Take 1 (one) tablet by mouth at bedtime 06/28/2022 Active cyclobenzaprine (Flexeril) 10 MG tablet Take 2 (two) tablets by mouth at bedtime 07/27/2022 Active omeprazole (PriLOSEC) 20 MG capsule Take 1 (one) capsule by mouth daily before breakfast Active budesonide-formoterol (Symbicort) 160-4.5 MCG/ACT inhaler Inhale 2 (two) puffs by mouth 2 times daily 07/05/2022 Active albuterol HFA (Proventil; Ventolin; Proair) 108 (90 Base) MCG/ACT inhaler Inhale 1 (one) puff by mouth every 6 hours as needed Active ergocalciferol (Drisdol) 1.25 MG (05067 UT) capsule Take 1 (one) capsule by mouth once daily Active Active Problems No known active problems Social History Tobacco Use Types Packs/Day Years Used Date Smoking Tobacco: Every Day Cigarettes Smokeless Tobacco: Never Alcohol Use Standard Drinks/Week Comments Yes 0 (1 standard drink = 0.6 oz pure alcohol) daily - couple beers / 30 shots per week Sex and Gender Information Value Date Recorded Sex Assigned at Not on file Gender Identity Not on file Sexual Orientation Not on file Last Filed Vital Signs Vital Sign Reading Time Taken Comments Blood Pressure 138/73 09/12/2022 1:00 PM CDT Pulse 73 09/12/2022 1:00 PM CDT Temperature 36.4 C (97.5 F) 09/12/2022 12:35 PM CDT Respiratory Rate 14 09/12/2022 1:00 PM CDT Oxygen Saturation 92% 09/12/2022 1:09 PM CDT Inhaled Oxygen Concentration - - Weight 89.8 kg (198 lb) 09/12/2022 8:34 AM CDT Height 170.2 cm (5' 7 ) 09/12/2022 8:34 AM CDT Body Mass Index 31.01 09/12/2022 8:34 AM CDT Plan of Treatment Health Maintenance Due Date Last Done Comments COLOGUARD (AGES 45-75) - COL ON CA SCREENING 1962 COLON MONITORING 1962 COLONOSCOPY - COLON CA SCREENING 1962 CT COLONOGRAPHY - COLON CA SCREENING 1962 Colorectal Cancer Screening 1962 FIT - COLON CA SCREENING 1962 FLEX SIG - COLON CA SCREENING 1962 LIPID TESTING 1962 MAMMOGRAM 1962 PAP SMEAR 1962 HIV SCREENING 1977 HEPATITIS C SCREENING 04/02/1980 DTAP/TDAP/TD VACCINES (1 - Tdap) 1981 PNEUMOCOCCAL VACCINE 50+ (1 of 2 - PCV) 1981 PNEUMOCOCCAL VACCINE (1 of 2 - PCV) 1981 ZOSTER VACCINE (1 of 2) 2012 COVID-19 VACCINE (1 - 2023-2 5 season) 2024 INFLUENZA VACCINE (#1) 2024 DEPRESSION SCREENING 06/12/2024 MEDICARE AWV CALENDAR YEAR 2024 Respiratory Syncytial Virus (RSV) Vaccine Pt: or over 60 yrs (1 - 1-dose 75+ series) 2037 HEPATITIS B VACCINE Aged Out No longe r eligible based on patient's age to complete this topic HIB VACCINE Aged Out No longer eligi ble based on patient's age to complete this topic HPV VACCINE Aged Out No longer eligi ble based on patient's age to complete this topic MENINGOCOCCAL (Group B) VACC INE SHARED DECISION-MAKING Aged Out No longer eligibl e based on patient's age to complete this topic MENINGOCOCCAL GROUPS A/C/Y/W VACCINE Aged Out No longer eligible b ased on patient's age to complete this topic Care Teams Box Spring Frame Builder Relationship Specialty Start Date End Date Dinora Banks MD [address] [place] [address] PCP - General 08/23/22
--- OUTSIDE RECORDS SUMMARY | 2024-08-27 16:07 | XMS_ITS | CONTINUITY OF CARE DOCUMENT ---
Author Name jose garcia Address Unknown Organization [facility] Address [id number] [place] [address] [address] [place] [address] Phone [phone] Care Team Providers Care Dispatch Lead Name Role Phone Jose Eduardo NG, Kavon Unavailable [phone] Lakisha Enamorado MD Unavailable [phone] Lakisha Enamorado MD Unavailable PROBLEMS Condition Status Date Provider Notes Wound check active Ming Hdez RN S/P Dual AICD - Biotronik ( MRI SAFE) active 8 Madiha Johnston Sleep apnea, obstructive active Kavon arriola MD Cardiology examination active Kavon Whitt MD Abnormal electrocardiogram active Kavon wilkins MD Hypertension active Kavon Wihtt MD CHF, systolic, chronic active Kavon Whitt MD C [facility] active Kavon Whitt MD Dyspnea on exertion active Kavon Whitt MD Hypersomnia active Kavon Whitt MD Cardiomyopathy, dilated active Kavon ellis MD Tobacco abuse active Kavon Whitt MD Hyperlipidemia active Kavon Whitt MD Arthritis active Kavon Whitt MD Family History of CVA or Stroke: active ? Vasquez Whitt MD ENCOUNTERS Date Type Provider Location Encounter Diag nosis 5 - 5 In-person encounter Office Visit Kavon Whitt MD [facility] 7 - 8 In-person encounter Office Visit Kavon Whitt MD [facility] 0 - 0 In-person encounter Office Visit Kavon Whitt MD [facility] 9 - 9 In-person encounter Office Visit Kavon Whitt MD [facility] CHF, systolic, chronic 7 - 9 In-person encounter Office Visit Kavon Whitt MD [facility] 0 - 0 In-person encounter Office Visit Kavon Whitt MD [facility] 1 - 1 In-person encounter Office Visit Kavon Whitt MD [facility] C O P D 5 - 6 In-person encounter Office Visit Kavon Whitt MD [facility] HypersomniaDyspnea on exertion 4 - 4 In-person encounter Office Visit Kavon Whitt MD [facility] 6 - 7 In-person encounter Office Visit Kavon Whitt MD [facility] 5 - 5 In-person encounter Office Visit Kavon Whitt MD [facility] 9 - 9 In-person encounter Office Visit Kavon Whitt MD [facility] 7 - 8 In-person encounter Office Visit Kavon Whitt MD [facility] Cardiomyopathy, dilated 7 - 7 In-person encounter Office Visit Kavon Whitt MD [facility] HyperlipidemiaHypertensionTobacco abuse 9 - 9 In-person encounter Office Visit Kavon Whitt MD [facility] Cardiology examinationFamily History of CVA or Stroke:ArthritisAbnormal electrocardiogram VITAL SIGNS Date Observation Value Provider Body Mass Index (Ratio) 30.07 kg/m2 Sen Whitt MD blood pressure, diastolic 77 mm[Hg] Zeinab Durham blood pressure, systolic 132 mm[Hg] Lesli Durham oxygen saturation, oximetry 95 % Filomena Durham pulse rate 78 /min Filomena Durham respiratory rate E&M 12 /min Filomena Durham weight E&M 192 [lb_av] Filomena Durham height E&M 67 [in_i] Filomena Durham blood pressure, cuff size regular Zeinab huggins Body Mass Index (Ratio) 30.85 kg/m2 Sen Whitt MD blood pressure, cuff size regular Clovis rret blood pressure, diastolic 73 mm[Hg] Clovis rret blood pressure, systolic 119 mm[Hg] Neda ret pulse rate 69 /min Fei oxygen saturation, oximetry 96 % Fei respiratory rate E&M 16 /min Fei weight E&M 197 [lb_av] Fei height E&M 67 [in_i] Fei Body Mass Index (Ratio) 31.01 kg/m2 Sen Whitt MD blood pressure, cuff size regular Ja rret blood pressure, diastolic 77 mm[Hg] Ja rret blood pressure, systolic 123 mm[Hg] Jar ret pulse rate 81 /min Fei oxygen saturation, oximetry 96 % Fei respiratory rate E&M 16 /min Fei weight E&M 198 [lb_av] Fei y height E&M 67 [in_i] Fei Body Mass Index (Ratio) 31.32 kg/m2 Sen Whitt MD blood pressure, cuff size regular Ja rret blood pressure, diastolic 88 mm[Hg] Ja rret blood pressure, systolic 145 mm[Hg] Jar ret pulse rate 73 /min Fei oxygen saturation, oximetry 96 % Fei respiratory rate E&M 12 /min Fei weight E&M 200 [lb_av] Fei height E&M 67 [in_i] Fei y Body Mass Index (Ratio) 33.04 kg/m2 Sen Whitt MD pulse rate 83 /min Melani [place] respiratory rate E&M 16 /min Melani moreno oxygen saturation, oximetry 95 % [facility] weight E&M 211 [lb_av] [facility] height E&M 67 [in_i] [facility] Body Mass Index (Ratio) 31.95 kg/m2 Sen Whitt MD blood pressure, diastolic 86 mm[Hg] Jada [facility] blood pressure, systolic 144 mm[Hg] Naima kLogic pulse rate 79 /min Fei blood pressure, cuff size regular Ja rret blood pressure, diastolic 86 mm[Hg] Ja rret blood pressure, systolic 144 mm[Hg] Jar ret respiratory rate E&M 12 /min Fei oxygen saturation, oximetry 95 % Fei weight E&M 204 [lb_av] Fei y height E&M 67 [in_i] Fei Gil y Body Mass Index (Ratio) 31.63 kg/m2 Sen Whitt MD blood pressure, diastolic 92 mm[Hg] Sudha russell [place] blood pressure, systolic 163 mm[Hg] Preet helle [place] oxygen saturation, oximetry 96 % Teresa Marmolejo pulse rate 86 /min Teresa More rojas weight E&M 202 [lb_av] Teresa More rojas blood pressure, cuff size large Sudha russell [place] respiratory rate E&M 16 /min Adriana rancho [place] height E&M 67 [in_i] Teresa rojas Body Mass Index (Ratio) 32.42 kg/m2 Sen Whitt MD blood pressure, cuff size large Sudha russell [place] blood pressure, diastolic 80 mm[Hg] Mi yvonne [place] blood pressure, systolic 148 mm[Hg] Preet helle [place] oxygen saturation, oximetry 98 % Teresa [place] respiratory rate E&M 16 /min Adriana rancho [place] pulse rate 86 /min Teresa Bernardozeinab crystal weight E&M 207 [lb_av] Teresa More rojas height E&M 67 [in_i] Teresa More rojas Body Mass Index (Ratio) 33.04 kg/m2 Sen Whitt MD blood pressure, cuff size large Tr otto Kramer blood pressure, diastolic 82 mm[Hg] Tr otto Kramer blood pressure, systolic 154 mm[Hg] Yadiel Kramer oxygen saturation, oximetry 95 % Urbano Kramer respiratory rate E&M 20 /min Urbano Kramer pulse rate 77 /min Urbano Kramer weight E&M 211 [lb_av] Urbano Kramer height E&M 67 [in_i] Urbano Kramer Body Mass Index (Ratio) 31.32 kg/m2 Sen Whitt MD blood pressure, diastolic 83 mm[Hg] Suzie Corbin blood pressure, systolic 151 mm[Hg] Lorri Corbin oxygen saturation, oximetry 93 % Raffi Corbin respiratory rate E&M 20 /min Scott Corbin pulse rate 77 /min Raffi kasper weight E&M 200 [lb_av] Raffi kasper height E&M 67 [in_i] Raffi kasper Body Mass Index (Ratio) 31.79 kg/m2 Sen Whitt MD blood pressure, cuff size regular Cy shearavind Velarde blood pressure, diastolic 90 mm[Hg] Cy shearavind Velarde blood pressure, systolic 160 mm[Hg] Joaquina andry Velarde oxygen saturation, oximetry 95 % Chapis Velarde respiratory rate E&M 18 /min Chapis Velarde pulse rate 98 /min Chapisandry Taylornicole l weight E&M 203 [lb_av] Chapis Brandonbel l height E&M 67 [in_i] Chapis Campbel l Body Mass Index (Ratio) 31.01 kg/m2 Sen Whitt MD blood pressure, diastolic 70 mm[Hg] Kr isty Brewster blood pressure, systolic 140 mm[Hg] Pavel Alvarado oxygen saturation, oximetry 99 % Phoebemona Alvarado pulse rate 80 /min Phoebe Jenny blood pressure, cuff size regular Kr isbeulah Calderonby respiratory rate E&M 17 /min Phoebe Brewster weight E&M 198 [lb_av] Phoebe Alvarado height E&M 67 [in_i] Phoebe Alvarado Body Mass Index (Ratio) 31.16 kg/m2 Sen Whitt MD blood pressure, cuff size regular Cy chantelle Velarde blood pressure, diastolic 70 mm[Hg] Cy chantelle Velarde blood pressure, systolic 128 mm[Hg] Joaquina andry Velarde oxygen saturation, oximetry 96 % Chapis Velarde respiratory rate E&M 16 /min Chapis Velarde pulse rate 94 /min Chapis porter height E&M 67 [in_i] Chapis Sherman l weight E&M 199 [lb_av] Chapis Sherman l ALLERGIES No Known Drug Allergies RESULTS Date Observation Value Provider Reference Range Interpretation Location 8 basophil count, absolute 0.1 x10E3/uL [facility] 0.0-0.2 8 Eosinophil Absolute Count 0.3 X10E3/UL [facility] 0.0-0.4 8 monocyte count, blood, automated 0.7 X10E3/UL [facility] 0.1-0.9 8 lymphocyte count, blood, automated 2.6 X10E3/UL [facility] 0.7-3.1 8 Absolute Neutrophils 4.7 X10E3/UL [facility] 1.4-7.0 8 basophils as percent of blood leukocytes 1 % [facility] Not Estab. 8 eosinophils as percent of blood leukocytes 3 % [facility] Not Estab. 8 monocytes as percent of blood leukocytes 8 % [facility] Not Estab. 8 lymphocytes as percent of blood leukocytes 31 % [facility] Not Estab. 8 neutrophils as percent of blood leukocytes 57 % [facility] Not Estab. 8 platelet count 214 X10E3/UL [facility] 608-674 3586/09/1 8 red blood cell distribution width 13.0 % [facility] 12.3-15.4 8 mean corpuscular hemoglobin concentration, RBC 33.3 G/DL [facility] 31.5-35.7 8 mean corpuscular hemoglobin, RBC 31.7 pg [facility] 26.6-33.0 8 mean corpuscular volume, RBC 95 fL [facility] 79-97 8 hematocrit, blood 41.8 % [facility] 34.0-46.6 8 hemoglobin, blood 13.9 g/dL [facility] 11.1-15.9 8 erythrocyte (RBC) count 4.39 X10E6/UL [facility] 3.77-5.28 8 leukocyte count, blood 8.5 X10E3/UL [facility] 3.4-10.8 8 prothrombin time (patient) 10.4 s [facility] 9.1-12.0 8 international normalized ratio (INR) 1.0 [facility] 0.8-1.2 8 lipoprotein, beta, serum, point, quantitative, calculated 108 mg/dL [facility] 0-99 High 8 very low density lipoproteins 24 mg/dL [facility] 5-40 8 HDL cholesterol, serum 42 mg/dL [facility] >39 8 triglyceride, serum, random 122 mg/dL [facility] 0-149 8 cholesterol, serum 174 mg/dL [facility] 318-535 7930/09/1 8 calcium, serum 9.4 mg/dL [facility] 8.7-10.2 8 carbon dioxide, venous blood 23 mmol/L [facility] 20-29 8 chloride, serum 102 mmol/L [facility] 96-106 8 potassium, serum 4.2 mmol/L [facility] 3.5-5.2 8 sodium, serum 138 mmol/L [facility] 796-870 2633/09/1 8 urea nitrogen/creatinin e ratio, serum 23 [facility] 9-23 8 eGFR if 97 mL/min/{1. 73_m2} [facility] >59 8 eGFR if not 84 mL/min/{1. 73_m2} [facility] >59 8 creatinine, serum 0.79 mg/dL [facility] 0.57-1.00 8 urea nitrogen, blood 18 mg/dL [facility] 6-24 8 blood glucose, random 107 mg/dL [facility] 65-99 High 8 ferritin, serum 124 ng/mL [facility] 15-150 8 iron saturation percent, serum 37 % [facility] 15-55 8 iron, serum 121 ug/dL [facility] 27-159 8 iron binding capacity, unsaturated 203 ug/dL [facility] 037-942 7529/08/0 8 iron binding capacity, total 324 ug/dL [facility] 127-356 9512/08/0 8 lipoprotein, beta, serum, point, quantitative, calculated 119 mg/dL [facility] 0-99 High 8 very low density lipoproteins 13 mg/dL [facility] 5-40 8 HDL cholesterol, serum 45 mg/dL [facility] >39 8 triglyceride, serum, random 66 mg/dL [facility] 0-149 8 cholesterol, serum 177 mg/dL [facility] 224-313 0759/08/0 8 calcium, serum 9.6 mg/dL [facility] 8.7-10.2 8 carbon dioxide, venous blood 24 mmol/L [facility] 20-29 8 chloride, serum 105 mmol/L [facility] 96-106 8 potassium, serum 5.1 mmol/L [facility] 3.5-5.2 8 sodium, serum 142 mmol/L [facility] 967-541 7194/08/0 8 urea nitrogen/creatinin e ratio, serum 22 [facility] 9-23 8 eGFR if 94 mL/min/{1. 73_m2} [facility] >59 8 eGFR if not 81 mL/min/{1. 73_m2} [facility] >59 8 creatinine, serum 0.81 mg/dL [facility] 0.57-1.00 8 urea nitrogen, blood 18 mg/dL [facility] 6-24 8 blood glucose, random 92 mg/dL [facility] 65-99 8 basophil count, absolute 0.1 x10E3/uL [facility] 0.0-0.2 8 Eosinophil Absolute Count 0.3 X10E3/UL [facility] 0.0-0.4 8 monocyte count, blood, automated 0.9 X10E3/UL [facility] 0.1-0.9 8 lymphocyte count, blood, automated 2.8 X10E3/UL [facility] 0.7-3.1 8 Absolute Neutrophils 5.2 X10E3/UL [facility] 1.4-7.0 8 basophils as percent of blood leukocytes 1 % [facility] Not Estab. 8 eosinophils as percent of blood leukocytes 4 % [facility] Not Estab. 8 monocytes as percent of blood leukocytes 9 % [facility] Not Estab. 8 lymphocytes as percent of blood leukocytes 30 % [facility] Not Estab. 8 neutrophils as percent of blood leukocytes 56 % [facility] Not Estab. 8 platelet count 204 X10E3/UL [facility] 706-620 6210/08/0 8 red blood cell distribution width 12.7 % [facility] 12.3-15.4 8 mean corpuscular hemoglobin concentration, RBC 33.9 G/DL [facility] 31.5-35.7 8 mean corpuscular hemoglobin, RBC 31.7 pg [facility] 26.6-33.0 8 mean corpuscular volume, RBC 93 fL [facility] 79-97 8 hematocrit, blood 41.0 % [facility] 34.0-46.6 8 hemoglobin, blood 13.9 g/dL [facility] 11.1-15.9 8 erythrocyte (RBC) count 4.39 X10E6/UL [facility] 3.77-5.28 8 leukocyte count, blood 9.3 X10E3/UL [facility] 3.4-10.8 HISTORY OF MEDICATION USE Medication Status Instructions Dates Provider Indications Com mentkayla Entresto 24-26 mg tablet active TAKE 1 TABLET BY MOUTH TWICE DAILY Kirsten Nicolaszohra cephalexin 500 mg capsule completed 1 capsule three times a day - Monica Irby NP carvedilol 6.25 mg tablet active TAKE 1 TABLET BY MOUTH TWICE DAILY Kala Serafin doxycycline hyclate 100 mg capsule completed Take 1 capsule by mouth twice a day - [facility] tramadol 50 mg tablet completed 1 tablet every six hours for pain - [facility] gabapentin 600 mg tablet active Take 4 tablet by mouth at night [facility] Entresto 24-26 mg tablet completed TAKE 1 TABLET BY MOUTH TWICE A DAY - [facility] carvedilol 6.25 mg tablet completed 1 tablet twice a day - [facility] cyclobenzaprine unspecified unspecified completed Take 1 tablet by mouth once a day - Monica Irby NP furosemide 20 mg tablet completed 1 tablet once a day as needed Take as needed for swelling - [facility] amlodipine 10 mg tablet completed Take 1 tablet by mouth once a day - Kavon Whitt MD calcium carbonate 600 mg calcium (1,500 mg) tablet completed 1 tablet by mouth once a day - [facility] BACLOFEN 10 MG ORAL TABLET completed Take 1 tab daily as needed - Raffi Corbin ergocalciferol (vitamin D2) 1,250 mcg (50,000 unit) capsule completed 1 capsule by mouth once a week - [facility] diclofenac sodium 75 mg tablet,delayed release (DR/EC) completed Take 1 tablet by mouth once a day - [facility] ropinirole 0.25 mg tablet completed Take 1 tablet by mouth three times a day as needed - [facility] ibuprofen 800 mg tablet completed Take 1 tablet once a day - [facility] ropinirole 2 mg tablet active Take 1 tablet twice a day [facility] omeprazole 20 mg tablet,disintegrat, delay rel completed Take 1 capsule once a day as needed - [facility] NORTRIPTYLINE HCL 25 MG ORAL CAPSULE completed Take 4 caps as needed at bedtime - Raffi Corbin gabapentin 300 mg capsule completed Take 2 capsule by mouth three times a day - [facility] SOCIAL HISTORY Date Observation Value Provider personal history of marijuana use yes Monica Irby NP drug use no Monica Irby NP alcohol use, average drinks per day 1 /d Monica Irby NP alcohol use, type Beer Monica turner NP alcohol use yes Monica Irby NP passive cigarette sm marino exposure yes Monica Irby NP smoking/tobacco cess ation, patient education and counseling yes Monica Irby NP number of years as a smoker 40 a Monica Irby NP smoking history, tot al pack/day 1 Monica Irby NP cigarette use yes Monica Irby NP smoking status Current every day smoker V emilio Irby NP personal history of marijuana use yes Kavon Whitt MD drug use no Kavon Rojas alcohol use, average drinks per day 1 /d Kavon Whitt MD alcohol use, type Beer Kavon betancourt MD alcohol use yes Kavon Rojas passive cigarette sm marino exposure yes Kavon Whitt MD smoking/tobacco cess ation, patient education and counseling yes Kavon Whitt MD number of years as a smoker 40 a Kavon Whitt MD smoking history, tot al pack/day 1 Kavon Whitt MD cigarette use yes Kavon Whitt MD smoking status Current every day smoker R catalina Whitt MD personal history of marijuana use yes Kavon Whitt MD drug use no Kavon Rojas alcohol use, average drinks per day 1 /d Kavon Whitt MD alcohol use, type Beer Kavon betancourt MD alcohol use yes Kavon Rojas passive cigarette sm marino exposure yes Kavon Whitt MD smoking/tobacco cess ation, patient education and counseling yes Kavon Whitt MD number of years as a smoker 40 a Kavon Whitt MD smoking history, tot al pack/day 1 Kavon Whitt MD cigarette use yes Kavon Whitt MD smoking status Current every day smoker R catalina Whitt MD personal history of marijuana use yes Kavon Whitt MD drug use no Kavon Rojas alcohol use, average drinks per day 1 /d Kavon Whitt MD alcohol use, type Beer Kavon betancourt MD alcohol use yes Kavon Rojas passive cigarette sm marino exposure yes Kavon Whitt MD smoking/tobacco cess ation, patient education and counseling yes Kavon Whitt MD number of years as a smoker 40 a Kavon Whitt MD smoking history, tot al pack/day 1 Kavon Whitt MD cigarette use yes Kavon Whitt MD smoking status Current every day smoker R catalina Whitt MD personal history of marijuana use yes Annita Ventimiglia [facility] drug use no Annita Ventimig hakan [facility] alcohol use, average drinks per day 1 /d Annita Ventimiglia [facility] alcohol use, type Beer Annita Bruce timiglia [facility] alcohol use yes Annita Ventimig hakan [facility] passive cigarette sm marino exposure yes Annita Ventimiglia [facility] smoking/tobacco cess ation, patient education and counseling yes Annita Ventimiglia [facility] number of years as a smoker 40 a Annita Ventimiglia [facility] smoking history, tot al pack/day 1 Annita Ventimiglia [facility] cigarette use yes Annita Ventimi glia [facility] smoking status Current every day smoker A ken Ventimiglia [facility] alcohol use, average drinks per day 1 /d Kavon Whitt MD alcohol use, type Beer Kavon betancourt MD alcohol use yes Kavon Rojas passive cigarette sm marino exposure yes Kavon Whitt MD smoking/tobacco cess ation, patient education and counseling yes Kavon Whitt MD number of years as a smoker 40 a Kavon Whitt MD smoking history, tot al pack/day 20 Kavon Whitt MD cigarette use yes Kavon Whitt MD smoking status Current every day smoker R catalina Whitt MD social history E&M Marital Statu s: C hildren: 0 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 P atient has been counseled to quit. 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 P atient has been counseled to quit. 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 P atient has been counseled to quit. 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 P atient has been counseled to quit. Kavon Whitt MD social history reviewed E&M revi ewed - no changes required Kavon Whitt MD passive cigarette sm marino exposure yes Chapis Velarde smoking/tobacco cess ation, patient education and counseling yes Chapis Velarde number of years as a smoker 40 a Chapis Velarde smoking history, tot al pack/day 1 PPD Chapis Velarde cigarette use yes Chapis resendez smoking status Current every day smoker C elio Vlearde social history reviewed E&M revi ewed - no changes required Kavon Whitt MD smoking/tobacco cess ation, patient education and counseling yes Kavon Whitt MD alcohol use, type Beer Kavon betancourt MD alcohol use, average drinks per day 1 /d Kavon Whitt MD alcohol use yes Kavon Rojas passive cigarette sm marino exposure yes Kavon Whitt MD social history reviewed E&M revi ewed - no changes required Kavon Whitt MD social history E&M Marital Statu s: C hildren: 0 O ccupation: Retired [employer] Smoking History: P atient currently smokes every day. 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 S tart entresto and carvedilol and repeat ECHO in 3 months. If EF no better, will need ICD Kavon Whitt MD [id number],Kavon Garza MD [id number],SKavon MD [id number],S, Kavon Ken ellis MD [id number],N,Needs IHS Vasquez Whitt MD [id number],N,S evere. Needs ECHO and stress. Can't walk treadmill, will need regadenoson. Kavon Whitt MD [id number],S, Kavon ellis MD [id number],S, Kavon Ken n [id number],S, Kavon Ken n [id number],S, Kavon Rogers n [id number],S, Kavon Rogers n [id number],S, Kavon Ken n [id number],S, Kavonchauncey Waldrop[employer]ence n [id number],S, Kavon [employer] n [id number],S, Kavon [employer]drop[employer] n [id number],S, Kavon Waldropessence n [id number],S, Kavon [employer]drop[employer]ence n [id number],S, Kavon Waldropessence ellis MD Cardiology: u nable to tolerate cpap Monica Irby SERVICE AIDE Cardiology: M anaged per PCP N o recent exacerbation Monica Irby SERVICE AIDE Cardiology: c essation encouraged Monica Irby SERVICE AIDE Cardiology: s /p aicd l ast echo 06/2023, ef 35% w ill repeat echo in 6 months O n Entresto and Carvedilol Monica Irby SERVICE AIDE Cardiology: C urrently not on MedRx Monica Irby SERVICE AIDE Cardiology: B P today: 132/77 P rior BP: 119/73 (10/10/2023) Her updated medication list for this problem includes: Carvedilol 6.25 Mg Tablet (Carvedilol) ..... Take 1 tablet by mouth twice daily Monica Irby NP Cardiology: c linically appears euvolemic Monica Irby NP Wound check Kavon Whitt MD Wound check Kavon Whitt MD Wound check Kavon Whitt MD Wound check Kavon Whitt MD Wound check Kavon Whitt MD Cardiology Kavon Whitt MD Cardiology Kavon Whitt MD Cardiology Kavon Whitt MD Cardiology Kavon Whitt MD Cardiology Kavon Whitt MD Cardiology Kavon Whitt MD Cardiology Kavon Whitt MD Cardiology Kavon Whitt MD Cardiology:S/P ICD Kavon Whitt MD Cardiology:cessation encouraged Annita Ventimiglia [facility] Cardiology:mod REMI c ould not tolerate CPAP Annita Ventimiglia [facility] Cardiology:LDL [address] labs p atient wishes no cholesterol lowering agents [facility] Cardiology:controlle d 123/77 H er updated medication list for this problem includes: Carvedilol 6.25 Mg Tablet (Carvedilol) ..... 1 tablet twice a day [place] Ventimiglraul [facility] Cardiology:EF 30% on last echo now 35% on follow up p atient compliant with maximally tolerated GDMT s he had stress test that mild reversible defect in anterior wall felt to be artifact on review by Dr. Whitt S he had LHC 2018 that showed normal coronaries w ill plan for ICD implantation in prevention of SCD H er updated medication list for this problem includes: Carvedilol 6.25 Mg Tablet (Carvedilol) ..... 1 tablet twice a day Annita Vivekmiglia [facility] Cardiology Kavon Whitt MD Cardiology:Cannot wear mask Sen Whitt MD Cardiology Kavno Whitt MD Cardiology:Check ECH O, if EF still low will need ICD. The patient is recommended to have ICD implanted. The risks and benefits have been discussed with the patient in this shared decision making encounter. A copy of the following evidence based decision tool on ICD has been given to the patient. [email or web address]/wp-content/[email or web address].pdf Kavon Whitt MD Cardiology Kavon Whitt MD Cardiology Kavon Whitt MD Cardiology Kavon Whitt MD Cardiology Kavon Whitt MD Cardiology:EF has dr opped to 30%. S tart entresto and carvedilol and repeat ECHO in 3 months. If EF no better, will need ICD Kavon Whitt MD Cardiology Kavon Whitt MD Cardiology Kavon Whitt MD Cardiology Kavon Whitt MD Cardiology:Needs IHS Kavon arriola MD Cardiology:Severe. N eeds ECHO and stress. Can't walk treadmill, will need regadenoson. Kavon Whitt MD Cardiology Kavon Whitt MD Cardiology Kavon Whitt MD Cardiology Kavon Whitt MD Cardiology Kavon Whitt MD Cardiology Kavon Whitt MD Cardiology Kavon Whitt MD Cardiology Kavon Whitt MD Cardiology Kavon Whitt MD Cardiology Kavon Whtit MD Cardiology Kavon Whitt MD Cardiology Kavon Whitt MD Cardiology Kavon Whitt MD Cardiology Kavon Whitt MD Cardiology Kavon Whitt MD Cardiology Kavon Whitt MD Cardiology Kavon Whitt MD Cardiology follow up Kavon arriola MD Cardiology follow up Kavon arriola MD Cardiology follow up Kavon arriola MD Cardiology follow up Kavon arriola MD Cardiology follow up :New. Now with LE edema and abnormal stress test. Needs cath. Kavon Whitt MD Cardiology Kavon Whitt MD Cardiology:Check lipid panel Vasquez Whitt MD Cardiology Kavon Whitt MD Cardiology:Borderlin e abnormal stress test with reduced EF (40%) confirmed by echo. D iscussed cath, but she is asymptomatic and starting a new job. She doesn't feel she can afford to miss work at this time so we will monitor for now and continue meds. Kavon Whitt MD Cardiology New Patient Kavon wilkins MD Cardiology New Patient Kavon wilkins MD Cardiology New Patient Kavon wilkins MD Date Name Complete Echo EKG COMPREHENSIVE METABO LIC PANEL W/EGFR PARTIAL THROMBOPLAST IN TIME, ACTIVATED URINALYSIS, COMPLETE W/REFLEX TO CULTURE PROTHROMBIN TIME WIT H INR LIPID PANEL CBC (INCLUDES DIFF/P LT) BASIC METABOLIC PANE L W/EGFR Complete Echo Sleep Study Home Stress Regadenoson Complete Echo BASIC METABOLIC PANE L W/EGFR CRP, high sensitivit y HEMOGLOBIN A1c PROBNP, N TERMINAL LIPID PANEL Complete Echo Venous Doppler Bilat eral LE - Reflux Arterial Duplex Bi-L ower EX PROTHROMBIN TIME WIT H INR LIPID PANEL CBC (INCLUDES DIFF/P LT) BASIC METABOLIC PANE L W/EGFR Cardiac Cath - Left - GC IRON AND TOTAL IRON BINDING CAPACITY FERRITIN CBC (INCLUDES DIFF/P LT) BASIC METABOLIC PANE L W/EGFR LIPID PANEL Stress Regadenoson Complete Echo HISTORY OF PROCEDURES Procedure Date Procedure Name Provider Procedure Notes S tatus EKG Kavon Whitt MD complete d EKG Ming Hdez RN completed Regadenoson, 4 units Kavon Whitt MD completed Cardiolite, 2 units Kavon Whitt MD completed SPECT Images Kavon Whitt MD comple adolfo Stress EKG Kavon Whitt MD complete d EKG Kavon Whitt MD complete d
--- OUTSIDE RECORDS SUMMARY | 2024-08-27 16:07 | XMS_ITS | Clinical Summary ---
Author Organization [facility] Address [address] [place] [address] Phone Care Team Providers Care Reading Assistant Name Role Phone Lakisha Enamorado MD Primary Care Provider [phone] Allergies No known active allergies Medications carvedilol (COREG) 6.25 MG Tablet 12/14/2023 Active Entresto 24-26 MG Tablet 10/23/2023 Active gabapentin (NEURONTIN) 600 MG Tablet Take 600 mg by mouth. 4 pills at bedtime 10/24/2023 Active rOPINIRole (REQUIP) 3 MG Tablet Take 3 mg by mouth nightly. 10/24/2023 Active Encounters Date Type Department Care Team Description 08/07/2024 7:48 AM SYSTEMS DESIGN ENGINEER - 08/07/2024 11:59 PM SYSTEMS DESIGN ENGINEER [facility] [address] [place] [address] Provider, Not On File Discharge Disposition: Discharged to home or Selfcare 08/07/2024 7:48 AM SYSTEMS DESIGN ENGINEER - 08/07/2024 11:59 PM SYSTEMS DESIGN ENGINEER [facility] [address] [place] [address] Provider, Not On File Discharge Disposition: Discharged to home or Selfcare 08/06/2024 Telephone [facility] [address] [place] [address] Igor Soares MD 07/24/2024 Telephone [facility] [address] [place] [address] Igor Soares MD 06/13/2024 1:30 PM SYSTEMS DESIGN ENGINEER Office Visit [facility] [address] [place] [address] Igor Soares MD Carpal tunnel syndrome of right wrist (Primary Dx); Cervical radiculopathy; Lumbar radiculopathy Discharge Disposition: Discharged to home or Selfcare 06/13/2024 Travel from Last 3 Months Family History Medical History Relation Name Comments Heart Disease Brother Hypertension Brother Asthma Father Heart Attack Father Lung Cancer Mother Relation Name Status Comments Brother Father Mother Social History Tobacco Use Types Packs/Day Years Used Date Smoking Tobacco: Every Day Cigarettes 1 30.6 Started: 01/02/1994 Smokeless Tobacco: Never Tobacco Cessation:Ready to Q uit: No; Counseling Given: Not Answered Alcohol Use Standard Drinks/Week Comments Yes 0 (1 standard drink = 0.6 oz pur e alcohol) moderate Sexually Active Control Partners Comments Not Currently Comments Unknown Sex and Gender Information Value Date Recorded Sex Assigned at Not on file Legal Sex Female 7:29 PM CDT Gender Identity Not on file Sexual Orientation Not on file Last Filed Vital Signs Vital Sign Reading Time Taken Comments Blood Pressure 140/88 06/13/2024 1:26 PM SYSTEMS DESIGN ENGINEER Pulse 77 06/13/2024 1:26 PM SYSTEMS DESIGN ENGINEER Temperature 36.6 C (97.8 F) 06/13/2024 1:26 PM SYSTEMS DESIGN ENGINEER Respiratory Rate 17 06/13/2024 1:26 PM SYSTEMS DESIGN ENGINEER Oxygen Saturation 95% 06/13/2024 1:26 PM SYSTEMS DESIGN ENGINEER Inhaled Oxygen Concentration - - Weight 87.7 kg (193 lb 4.8 oz) 06/13/2024 1:26 P M SYSTEMS DESIGN ENGINEER Height 171.7 cm (5' 7.6 ) 06/13/2024 1:26 PM SYSTEMS DESIGN ENGINEER Body Mass Index 29.74 06/13/2024 1:26 PM SYSTEMS DESIGN ENGINEER Plan of Treatment Upcoming Encounters Date Type Department Care Team (Late st Contact Info) Description 09/12/2024 3:30 PM CDT Office Visit [facility] [address] [place] [phone] Igor Soares MD [address] [place] [phone] Health Maintenance Due Date Last Done Comments Hepatitis C Virus (HCV) Screening 1962 Mammogram 1962 TdaP Immunization 1962 Pneumococcal Immunization (50+ years) (1 of 2 - PCV) 1981 Pap Smear 1983 Cervical Cancer Screening (CCS) 1992 HPV/Cotest 1992 Hepatitis B Immunization (2 of 3 - 19+ 3-dose series) 02/02/2007 01/05/2007 Colonoscopy 2007 Colorectal Cancer Screening 2007 Cologuard 2012 Immunochemical Fecal Occult Blood 2012 Lung Cancer Screening 2012 Zoster Immunization (1 of 2) 2012 Respiratory Syncytial Virus (RSV) Immunization (Adult) (1 - Risk 60-74 years 1-dose series) 2022 Influenza Immunization (#1) 2024 SARS-COV-2 Immunization Completed 04/03/20, 01/28/2022, 08/11/2021, Additional history exists Meningococcal Immunization (ACWY) Aged Out No longer eligible based on patient's age to complete this topic Rotavirus Immunization Aged Out No lo nger eligible based on patient's age to complete this topic Procedures Procedure Name Priority Date/Time Associated Diagnosis Comments MR REFERENCE IMAGES FOR IMAGE IMPORT Routine 08/07/2024 7:48 AM SYSTEMS DESIGN ENGINEER MR REFERENCE IMAGES FOR IMAGE IMPORT Routine 08/07/2024 7:48 AM SYSTEMS DESIGN ENGINEER from Last 3 Months Results * MR REFERENCE IMAGES FOR IMAGE IMPORT (08/07/2024 7:48 AM SYSTEMS DESIGN ENGINEER) Only the most recent of2 resultswithin the time period is included. us Not On File Provider IMG MR ORDERABLES Final Res ult from Last 3 Months Insurance MEDICARE C [facility] MEDICAID [place] Care Teams Reading Assistant Relationship Specialty Start Date End Date Lakisha Enamorado MD [address] [place] [id number] PCP - General Family Medicine 01/02/24
--- OUTSIDE RECORDS SUMMARY | 2024-08-27 16:07 | XMS_ITS | Clinical Summary ---
Author Organization [facility] Administrative Offices Address [address] [place] [address] Care Team Providers Care Training Manager Name Role Phone Unavailable Primary Care Provider Unavailabl e Encounters Date Type Department Care Team Description 08/21/2024 External Device Data ST[facility] ABSTRACTION Provider, Abstract 08/20/2024 External Device Data [facility] ABSTRACTION Provider, Abstract 08/19/2024 External Device Data [facility] ABSTRACTION Provider, Abstract 08/17/2024 External Device Data [facility] ABSTRACTION Provider, Abstract 08/16/2024 External Device Data [place] ABSTRACTION Provider, Abstract 08/14/2024 External Device Data [place] ABSTRACTION Provider, Abstract 07/31/2024 External Device Data [facility] ABSTRACTION Provider, Abstract 07/23/2024 External Device Data [place] ABSTRACTION Provider, Abstract 07/23/2024 External Device Data [place] ABSTRACTION Provider, Abstract 07/23/2024 External Device Data ST[place] ABSTRACTION Provider, Abstract 07/18/2024 2:26 PM CLOTH BOOKER - 07/18/2024 11:59 PM CLOTH BOOKER Hospital Encounter [address] [address] Igor Soares MD Nurse, [facility] Discharge Disposition: Home or Self Care 07/18/2024 2:00 PM CLOTH BOOKER - 07/18/2024 11:59 PM CLOTH BOOKER Hospital Encounter [address] [address] Igor Soares MD Nurse, [facility] Discharge Disposition: Home or Self Care from Last 3 Months Social History Tobacco Use Types Packs/Day Years Used Date Smoking Tobacco: Never Assessed Comments Unknown Sex and Gender Information Value Date Recorded Sex Assigned at Not on file Legal Sex Female 10:57 AM CLOTH BOOKER Gender Identity Not on file Sexual Orientation Not on file Plan of Treatment Health Maintenance Due Date Last Done Comments Pre-Diabetes and Diabetes Screening 1962 DTAP/TDAP/TD VACCINES (1 - Tdap) 1981 CERVICAL CANCER SCREENING 1992 BREAST CANCER SCREENING 2002 COLORECTAL SCREENING 2007 Colorectal Cancer Screening 2007 FIT-DNA Q 3 years 2007 FIT/FOBT Q 1 year 2007 Flex Sig/CT Colonography Q 5 years 2007 ZOSTER VACCINE (1 of 2) 2012 RSV VACCINE (60+ or ) (1 - Risk 60-74 years 1-dose series) 2022 INFLUENZA VACCINE (#1) 2024 Procedures Procedure Name Priority Date/Time Associated Diagnosis Comments MRI LUMBAR WO CONTRAST Routine 07/18/2024 3:52 PM CLOTH BOOKER Lumbar radiculopathy MRI CERVICAL WO CONTRAST Routine 07/18/2024 3:37 PM CLOTH BOOKER Cervical radiculopathy from Last 3 Months Results * MRI LUMBAR WO CONTRAST (07/18/2024 3:52 PM CLOTH BOOKER) Anatomical Region Laterality Modality Spine Magnetic Resonan ce 07/18/2024 3:53 PM CLOTH BOOKER Impressions 07/18/2024 4:22 PM CLOTH BOOKER IMPRESSION: 1. Lumbar degenerative disc and joint disease as described above. DICTATION LOCATION: Location [address] [place] [address] 07/18/2024 4:22 PM CLOTH BOOKER EXAMINATION: MRI LUMBAR WO CONTRAST DATE: 07/18/2024 3:52 PM HISTORY: See Diagnosis; Lumbar radiculopathy TECHNIQUE: MRI of the lumbar spine was performed without contrast according to standard protocol. COMPARISON: No prior study is available for comparison at the time of this dictation. FINDINGS: There is minimal anterolisthesis at L4-5. Vertebral bodies are normal in height without evidence of compression fracture. There are mild Modic changes at L1-2. The conus medullaris terminates at the level of L1 and the distal spinal cord signal intensity is normal. Hemangiomas are seen in T11 and L1. There is moderate disc height loss at multiple levels. Right renal cyst is present. L1-L2: There is diffuse disc bulge. There is minimal spinal canal stenosis. There is mild bilateral facet osteoarthritis. There is no neural foraminal stenosis. L2-L3: There is no disc bulge. There is no spinal canal stenosis. There is a bilateral facet osteoarthritis. There is no neural foraminal stenosis. L3-L4: There is mild disc bulge. There is minimal spinal canal stenosis. There is no facet osteoarthritis. There is no neural foraminal stenosis. L4-L5: There is mild anterolisthesis without posterior disc bulge There is no spinal canal stenosis. There is mild bilateral facet osteoarthritis. There is no neural foraminal stenosis. L5-S1: There is no disc bulge. There is no spinal canal stenosis. There is mild bilateral facet osteoarthritis. There is mild bilateral neural foraminal stenosis. Procedure Note Anant Amaya MD - 07/18/2024 EXAMINATION: MRI LUMBAR WO CONTRAST DATE: 07/18/2024 3:52 PM HISTORY: See Diagnosis; Lumbar radiculopathy TECHNIQUE: MRI of the lumbar spine was performed without contrast according to standard protocol. COMPARISON: No prior study is available for comparison at the time of this dictation. FINDINGS: There is minimal anterolisthesis at L4-5. Vertebral bodies are normal in height without evidence of compression fracture. There are mild Modic changes at L1-2. The conus medullaris terminates at the level of L1 and the distal spinal cord signal intensity is normal. Hemangiomas are seen in T11 and L1. There is moderate disc height loss at multiple levels. Right renal cyst is present. L1-L2: There is diffuse disc bulge. There is minimal spinal canal stenosis. There is mild bilateral facet osteoarthritis. There is no neural foraminal stenosis. L2-L3: There is no disc bulge. There is no spinal canal stenosis. There is a bilateral facet osteoarthritis. There is no neural foraminal stenosis. L3-L4: There is mild disc bulge. There is minimal spinal canal stenosis. There is no facet osteoarthritis. There is no neural foraminal stenosis. L4-L5: There is mild anterolisthesis without posterior disc bulge There is no spinal canal stenosis. There is mild bilateral facet osteoarthritis. There is no neural foraminal stenosis. L5-S1: There is no disc bulge. There is no spinal canal stenosis. There is mild bilateral facet osteoarthritis. There is mild bilateral neural foraminal stenosis. IMPRESSION: 1. Lumbar degenerative disc and joint disease as described above. DICTATION LOCATION: [address] [place] Igor Soares MD MR ORDERABLES Final Result * MRI CERVICAL WO CONTRAST (07/18/2024 3:37 PM CLOTH BOOKER) Anatomical Region Laterality Modality Spine Magnetic Resonan ce 07/18/2024 3:37 PM CLOTH BOOKER Impressions 07/18/2024 4:00 PM CLOTH BOOKER IMPRESSION: 1. Cervical spine straightening with mild multilevel posterior disc bulging throughout the cervical spine without significant central canal or definite foraminal stenosis. DICTATION LOCATION: [address] Narrative 07/18/2024 4:00 PM CLOTH BOOKER EXAMINATION: MRI CERVICAL WO CONTRAST DATE: 07/18/2024 3:37 PM HISTORY: Cervical radiculopathy TECHNIQUE: MRI of the cervical spine was performed without contrast according to standard protocol. COMPARISON: No prior study is available for comparison at the time of this dictation. FINDINGS: Cervical spine straightening is present. The vertebral body heights are normal. No subluxation present. There is intervertebral disc space narrowing at C5-C6 most significantly. The spinal cord signal intensity is normal throughout. C2-3: Minimal posterior disc bulge present centrally without central canal or foraminal stenosis. C3-4: Minimal posterior disc convexity present mild facet arthropathy. Is no evidence of central canal or foraminal stenosis. C4-5: Mild diffuse posterior disc bulge present without evidence of central canal or foraminal stenosis. C5-6: Severe intervertebral disc space narrowing is present with mild diffuse posterior disc bulge present without central canal or definite foraminal stenosis. C6-7: No disc bulge present. No central canal or foraminal stenosis. C7-T1: No significant disc bulge present. No central canal or neural foraminal stenosis. Procedure Note Jose Eduardo Blood MD - 07/18/2024 EXAMINATION: MRI CERVICAL WO CONTRAST DATE: 07/18/2024 3:37 PM HISTORY: Cervical radiculopathy TECHNIQUE: MRI of the cervical spine was performed without contrast according to standard protocol. COMPARISON: No prior study is available for comparison at the time of this dictation. FINDINGS: Cervical spine straightening is present. The vertebral body heights are normal. No subluxation present. There is intervertebral disc space narrowing at C5-C6 most significantly. The spinal cord signal intensity is normal throughout. C2-3: Minimal posterior disc bulge present centrally without central canal or foraminal stenosis. C3-4: Minimal posterior disc convexity present mild facet arthropathy. Is no evidence of central canal or foraminal stenosis. C4-5: Mild diffuse posterior disc bulge present without evidence of central canal or foraminal stenosis. C5-6: Severe intervertebral disc space narrowing is present with mild diffuse posterior disc bulge present without central canal or definite foraminal stenosis. C6-7: No disc bulge present. No central canal or foraminal stenosis. C7-T1: No significant disc bulge present. No central canal or neural foraminal stenosis. IMPRESSION: 1. Cervical spine straightening with mild multilevel posterior disc bulging throughout the cervical spine without significant central canal or definite foraminal stenosis. DICTATION LOCATION: [address] Igor Soares MD MR ORDERABLES Final Result from Last 3 Months Insurance [facility] [id number] MEDICAID [place]
--- OUTSIDE RECORDS SUMMARY | 2024-08-27 16:07 | XMS_ITS | Encounter Summary ---
Author Organization [facility] Address [facility] [facility] [place] [address] Care Team Providers Care Refueler Name Role Phone Dinora Banks MD Primary Care Provider [phone] Encounter Details Date Type Department Care Team (Late st Contact Info) Description 08/23/2022 Telephone [facility] Medicine [address] [facility] [place] [phone] Mason Lindsay MD [address] [facility] 2L DIV OF PULMONARY/[place] [address] Social History Tobacco Use Types Packs/Day Years Used Date Smoking Tobacco: Never Assessed Sex and Gender Information Value Date Recorded Sex Assigned at Not on file Gender Identity Not on file Sexual Orientation Not on file documented as of this encounter Miscellaneous Notes * Telephone Encounter - Ermelinda Burnett - 08/23/2022 1:00 PM CDT Current Provider name: Dr. Mason Lindsay Reason for call: Ms. Mayra Zavala called re: completion of CT Scan you wanted her to have. It was done yesterday and results are on a disc. She also has disc for the other scans you wanted her to have. They will fax over PFT results to you. Since she spoke with you it sounds like you want her to have an appt sooner than what I have available, 10/19/2022. Please advise and schedule patient. Patient Call Back number: [phone] documented in this encounter Plan of Treatment Not on file documented as of this encounter Visit Diagnoses Not on filedocumented in this encounter Care Teams Refueler Relationship Specialty Start Date End Date Dinora Banks MD [address] [place] [address] PCP - General 08/23/22 documented as of this encounter
== END 2024-08-27 14:17 | disposition home or self-care (01) ==
PROVIDERS: PCP Emergency Medicine; Visit Provider Emergency Medicine
DX: M19.011 Primary osteoarthritis, right shoulder (principal)
CPT/HCPCS: 73030; 73060